=== PATIENT | female | born 1985 | race Caucasian/White ===

== ENCOUNTER 2019-04-19 12:18 | Outpatient (REF) | payer OTHER, SELFPAY ==
[2019-04-19 14:49] LABS: Anion Gap 11.6 mmol/L (3-11); BUN 14 mg/dL (7-18); CO2 22.4 mmol/L (21.0-32.0); CREATININE 0.65 mg/dL (0.55-1.02); Calcium 9.1 mg/dL (8.5-10.1); Chloride 97 mmol/L (98-107); Glucose 398 mg/dL (70-100); Magnesium 1.7 mg/dL (1.8-2.4); Potassium 4.3 mmol/L (3.5-5.1); Sodium 131 mmol/L (136-145); TSH (W/Ref FT4) 2.68 uIU/mL (0.36-3.74)
== END 2019-04-19 12:38 ==
LOC: NCHCN 12:18
PROVIDERS: PCP Nurse Practitioner Family; Visit Provider Nurse Practitioner Family
DX: E83.42 Hypomagnesemia (principal); E04.1 Nontoxic single thyroid nodule; E11.9 Type 2 diabetes mellitus without complications
CPT/HCPCS: 80048; 83735; 84443

== ENCOUNTER 2019-08-08 01:16 | Outpatient (CLI) | payer OTHER, SELFPAY ==
--- NOTE | 2019-08-08 09:02 | DI.MAMMO_ITS ---
EXAM: US BREAST LT COMPLETEAND RT BREAST ULTRASOUND AND MAMMOGRAM CLINICAL HISTORY: BREAST MASS OR LUMP N63.0 TECHNIQUE: Ultrasound performed using standard protocol. COMPARISON: No exams were available for comparison FINDINGS: Mammogram: Palpable abnormalities are noted in both breasts. Mammogram is a baseline examination. The breasts are composed of fatty density tissue, breast density, category A. No masses or suspiciou s calcifications are seen. Bilateral breast ultrasound: No cyst or solid mass is identified in either breast. IMPRESSION: BI-RADS category 1, negative mammogram. Annual screening is recommended at age 40 or sooner if clini jacqui indicated. BI-RADS Cat 1 - Negative. Breast Density - Category A - Almost entirely fatty.
== END 2019-08-08 01:36 ==
PROVIDERS: PCP Nurse Practitioner Family; Visit Provider Nurse Practitioner Family
DX: N63.10 Unspecified lump in the right breast, unspecified quadrant (principal); N63.20 Unspecified lump in the left breast, unspecified quadrant; N64.59 Other signs and symptoms in breast
CPT/HCPCS: 76642; 77062; 77066; G0279

== ENCOUNTER 2020-06-11 19:22 | Outpatient (REF) | payer OTHER, SELFPAY ==
[2020-06-11 22:20] LABS: ALT 19 U/L (14-59); AST 8 U/L (15-37); Anion Gap 10.6 mmol/L (3-11); BUN 9 mg/dL (7-18); CO2 26.4 mmol/L (21.0-32.0); CREATININE 0.59 mg/dL (0.55-1.02); Calcium 9.2 mg/dL (8.5-10.1); Calculated LDL 109 mg/dL (<100); Chloride 99 mmol/L (98-107); Cholesterol 170 mg/dL (<200); Glucose 249 mg/dL (74-106); HDL Cholesterol 37 mg/dL (40-60); Potassium 4.4 mmol/L (3.5-5.1); Sodium 136 mmol/L (136-145); Triglyceride 122 mg/dL (<150)
== END 2020-06-11 19:42 ==
LOC: NCHCN 19:22
PROVIDERS: PCP Nurse Practitioner Family; Visit Provider Nurse Practitioner Family
DX: E11.9 Type 2 diabetes mellitus without complications (principal)
CPT/HCPCS: 80048; 80061; 84450; 84460

== ENCOUNTER 2020-07-11 19:55 | Emergency (ER) | payer OTHER, SELFPAY ==
[2020-07-11 20:08] VITALS: BP 130/90; PULSE 110; RESP 18; TEMP 36.4; O2SAT 96
[2020-07-11] MEDS: Lactated Ringers 1,000 ML 1000 ML IV ×2 (20:30→21:57)
--- NOTE | 2020-07-11 20:36 | ED.GENADUL_ITS ---
Discharge Plan Disposition Patient Disposition: HOME Condition: Good Discharge Details Clinical Impression: Diarrhea, Nausea & vomiting, Hyponatremia, Hypomagnesemia Primary Care Provider: Kalie Espinosa ED Provider: Rosie Rose Home Meds and New Rx's Prescriptions: New ondansetron 4 mg tablet,disintegrating 4 mg PO Q6H PRN (Reason: nausea and vomiting) Qty: 10 RF: 0 Continued fluconazole [Diflucan] 100 mg tablet 100 mg PO DAILY Qty: 20 RF: 2 metformin 500 MG tablet 1,000 mg PO BID RF: 0 lisinopril 5 MG tablet 5 mg PO DAILY RF: 0 magnesium amino acid chelate 100 MG tablet 100 mg PO DAILY RF: 0 Discharge Instructions Instructions: Ondansetron (By mouth), Hyponatremia (ED), Acute Diarrhea (ED), Hypomagnesemia (ED) Additional Instructions: Please continue to encourage gentle hydration. You may advance diet as tolerated but please keep it simple initially with pain such as bananas, rice, applesauce, toast. Please follow-up with primary care next week for reevaluation. If he continues to have loose stools bring him collection to the lab as instructed by nursing staff. If you develop fever/chills, increased abdominal pain, inability stay hydrated or other new/worsening symptoms please seek care urgently once again. Referrals: Kalie Espinosa [Primary Care Provider] - Discharge Data Discharge Date/Time-TO BE ENTERED AT DEPARTURE: 07/11/20 23:25 Medical Decision Making Patient is a pleasant 35-year-old female presenting today with chief complaint of nausea, vomiting and diarrhea. Patient reports that for the past 6 months she has been having difficulty with alternating between constipation for several days and then subsequent diarrhea. She reports that she had no bowel movement for approximately 7 days. Did not take stool softener. She reports that then yesterday she began having bowel movements. States that she has had 9 episodes of diarrhea today. Denies any blood or melena. States that she been having some diffuse abdominal cramping. Past surgical history pertinent for cholecystectomy. Patient reports that today she also had some nausea and vomited x1. She denies any known sick contacts. No fevers or chills. Patient I discussed treatment options. At this point, I do not see a evidence to suggest a surgical abdomen. Her pain is fairly diffuse. She has been passing flatus. Do not see any evidence to suggest an obstruction, acute cholecystitis, pancreatitis, appendicitis. She denies being . No peritoneal findings on exam. She denies discussed risk and benefit of imaging at this point we will hold off at this time. Plan to hydrate the patient, give the Zofran and reassess. Labs reviewed. Patient white count of 13. Hemoglobin 16. Likely concentration with the findings. Sodium is low at 130. Glucose is elevated at 257 which is baseline for the patient. Lipase is normal. Patient I discussed labs. She has not had any bowel movement since being here. Patient is a nurse. As she has had patients with C. difficile, although none recently, I did consider this based on the patient's elevated white count as well as her frequent diarrhea. We will send her home with stool collection kit so she can bring in a sample when she is able. Encourage her to follow-up closely with her primary care. She is able to sip fluids and does report that her nausea has improved with the Zofran. Most likely, a large amount of stool is associated with patient having been constipated for weekend and finally being to have a bowel movement. We will continue this at home. Strict return precautions were discussed. All of her questions and concerns were addressed and she is in agreement with this plan. HPI General Mode of arrival: ambulatory . Date/Time Provider Initiated Documentation: 07/11/20 20:35 . Limitations to Documentation: no limitations . Information obtained by: patient and RN notes reviewed . History of Present Illness 35 year old F presents to the emergency department with the chief complaint of nausea, diarrhea, abdominal cramping, described as moderate, with intensity rated at 4. Quality is described as other (cramping), and is localized to the abdomen. Patient reports no radiation. Patient started experiencing this hour(s) (this morning) and it has been constant. No relieving factors improve symptom(s), No exacerbating factors reported . Patient notes loss of appetite and nausea/vomiting; denies chest pain, cough, fever/chills, headaches, rash, shortness of breath and weakness. Patient did receive the following treatments prior to arrival, none Related Data Home Medications Medication Instructions Recorded Confirmed metformin 1,000 mg PO BID 09/30/16 07/11/20 magnesium amino acid chelate 100 mg PO DAILY 01/14/17 07/11/20 lisinopril 5 mg PO DAILY tab-cap 08/08/17 07/11/20 fluconazole 100 mg tablet 100 mg PO DAILY #20 tab 08/03/18 07/11/20 ondansetron 4 mg PO Q6H PRN #10 tab 07/11/20 Previous Rx's Medication Instructions Recorded fluconazole 100 mg tablet 100 mg PO DAILY #20 tab 08/03/18 ondansetron 4 mg PO Q6H PRN #10 tab 07/11/20 Allergies Allergy/AdvReac Type Severity Reaction Status Date / Time No Known Allergies Allergy Unverified 07/11/20 20:13 General Stated Complaint: Abd Prob FLOYD: 3 Review of Systems Constitutional Constitutional: Reports as per HPI, Denies chills, Denies fatigue, Denies fever(s) and Denies headache(s) ENT Ears, Nose, Mouth, and Throat: Denies headache(s) Cardiovascular Cardiovascular: Reports as per HPI, Denies chest pain and Denies dyspnea Respiratory Respiratory: Reports as per HPI, Denies cough and Denies dyspnea Gastrointestinal Gastrointestinal: Reports as per HPI Musculoskeletal Musculoskeletal: Reports as per HPI and Denies back pain Integumentary/Breasts Skin/Breast: Reports as per HPI and Denies rash Neurologic Neurologic: Reports as per HPI and Denies headache(s) Endocrine Endocrine: Denies fatigue [facility] Medical History (Updated 07/11/20 @ 23:18 by GENIE Rogers) BMI 38.0-38.9,adult Diabetes Type II no endorgan damage. Not using insulin. 2016 hemoglobin A1c 7.7 Hx of thyroid nodule Hyperlipidemia Low vitamin D level (2017). Nocturnal leg cramps Tobacco use Yeast vaginitis Onset 2017. Neg Vag path screen. Rx with weekly Diflucan with improvement in pruritus. Pt with poor glycemic control of DM. Surgical History (Updated 08/05/18 @ 17:39 by Inés Whitley MD) Cholecystectomy Social History (Updated 08/05/18 @ 17:44 by Inés Whitley MD) Smoking/Tobacco Use Status: Current every day Smoking risk assessment performed?: Yes Drug use: Never Substance use type: does not use Number of Children: 0 current occupation: [employer] Do you feel safe in your relationship?: Yes Exam Const General: cooperative, healthy appearing, comfortable, no acute distress and well developed Nutritional Appearance: average body habitus and well nourished Orientation: alert and awake [facility] Head: normal to inspection Mouth: moist mucous membranes Resp Effort & Inspection: normal respiratory effort, able to speak in complete sentences and no respiratory distress Auscultation: clear to auscultation bilaterally, no rales, no rhonchi and no wheezes Cardio Rate: regular rate Rhythm: regular rhythm Heart Sounds: S1 normal and S2 normal GI Inspection: normal to inspection Palpation: soft, no hepatosplenomegaly, not firm, no guarding and tender (diffusely tender with no focal areas of pain, no peritoneal findings) Percussion: normal to percussion Auscultation: normal bowel sounds Back/Spine/Pelvis Back: no CVA tenderness Skin General skin exam: no rashes or lesions noted Trauma: no lacerations or abrasions Neuro General: patient alert and patient awake Cognition: normal cognition Speech: speech normal Gait: normal gait Psych Appearance: grossly normal and well kempt Mental Status: mental status grossly normal Speech and Movement: speech and movement normal Course Vital Signs Vital signs: Vital Signs Temperature 36.4 C L 07/11/20 20:08 Pulse 110 H 07/11/20 20:08 Respiratory Rate 18 07/11/20 20:08 Blood Pressure 130/90 07/11/20 20:08 Pulse Oximetry 96 07/11/20 20:08 Temperature 36.4 C L 07/11/20 20:08 Temperature Source Temporal Artery Scan 07/11/20 20:08 Pulse 110 H 07/11/20 20:08 Respiratory Rate 18 07/11/20 20:08 Respiratory Effort 07/11/20 20:15 Blood Pressure 130/90 07/11/20 20:08 Blood Pressure Position Sitting 07/11/20 20:08 Pulse Oximetry 96 07/11/20 20:08 Oxygen Delivery Method Room Air 07/11/20 20:08 Oxygen Flow Rate 0 07/11/20 20:08 Pain Level 4 07/11/20 20:08
[2020-07-11 20:51] LABS: Abs Immature Grans 0.03 10^3/uL (0.0-0.06); Absolute Basophil Count 0.05 10^3/uL (0.0-0.2); Absolute Eosinophil Count 0.11 10^3/uL (0.0-0.7); Absolute Monocyte Count 0.46 10^3/uL (0.1-0.8); Absolute Neutrophil Count 9.56 10^3/uL (1.2-6.7); Basophils % 0.4; Eosinophils % 0.8; HCT 46.2 % (36.0-46.0); HGB 16.1 g/dL (11.2-15.7); Immature Grans % 0.2; Lymphocytes % 22.7; MCH 28.1 pg (27.0-33.0); MCHC 34.8 % (32.0-36.0); MCV 80.8 fL (80-95); MPV 10.3 fL (8.0-11.0); Monocytes % 3.5; Neutrophils % 72.4; Nucleated RBC 0 %; Platelet Count 380 10^3/uL (130-400); RBC 5.72 10^6/uL (3.93-5.22); RDW 12.3 % (11.7-14.6); RDW-SD 35.8 fL; WBC 13.21 10^3/uL (4.4-10.8)
[2020-07-11 21:03] LABS: ALT 35 U/L (14-59); AST 25 U/L (15-37); Albumin 4.1 g/dL (3.4-5.0); Alkaline Phosphatase 107 U/L (46-116); Anion Gap 9.9 mmol/L (3-11); BUN 12 mg/dL (7-18); Bilirubin, Total 0.6 mg/dL (0.2-1.0); CO2 23.1 mmol/L (21.0-32.0); CREATININE 0.56 mg/dL (0.55-1.02); Calcium 9.8 mg/dL (8.5-10.1); Chloride 97 mmol/L (98-107); Glucose 267 mg/dL (74-106); Lipase 69 U/L (73-393); Magnesium 1.7 mg/dL (1.8-2.4); Potassium 4.2 mmol/L (3.5-5.1); Sodium 130 mmol/L (136-145); Total Protein 8.6 g/dL (6.4-8.2)
[2020-07-11 21:46] VITALS: BP 117/74; PULSE 99; RESP 18; O2SAT 99
[2020-07-11] MEDS: MAGNESIUM SULFATE 1 GM/100 ML BAG IVPB (21:57)
[2020-07-11] MEDS: Ondansetron 4 MG/2 ML VIAL IVP (22:05)
[2020-07-11 23:16] VITALS: BP 113/85; PULSE 89; RESP 16; O2SAT 98
[2020-07-11 23:33] VITALS: BP 129/60; PULSE 104; RESP 18; TEMP 36.6; O2SAT 97
== END 2020-07-11 23:25 | disposition home or self-care (01) ==
PROVIDERS: Emergency Provider Physician Assistant; PCP Nurse Practitioner Family
DX: E83.42 Hypomagnesemia (principal); E87.1 Hypo-osmolality and hyponatremia; R11.2 Nausea with vomiting, unspecified; R19.7 Diarrhea, unspecified; E11.9 Type 2 diabetes mellitus without complications; Z79.84 Long term (current) use of oral hypoglycemic drugs
CPT/HCPCS: 36415; 80053; 83690; 96361; 96365; 96375; 99284; 83735; 85025; J2405; J3475

== ENCOUNTER 2020-07-12 16:32 | Outpatient (REF) | payer OTHER, SELFPAY ==
[2020-07-12 16:15] LABS: C Diff PCR Negative (Negative)
== END 2020-07-12 16:52 ==
LOC: LBN 16:32
PROVIDERS: PCP Nurse Practitioner Family; Visit Provider Physician Assistant
DX: R19.7 Diarrhea, unspecified (principal)
CPT/HCPCS: 87493; 83630; 87324

== ENCOUNTER 2020-09-05 03:50 | Outpatient (CLI) | payer OTHER, SELFPAY ==
--- NOTE | 2020-09-05 | DI.US_ITS ---
EXAM: US THYROID CLINICAL HISTORY: THYROID NODULE, E04.1. TECHNIQUE: Ultrasound thyroid performed using standard protocol. COMPARISON: US THYROID ULTRASOUND from 12/07/2017 FINDINGS: ISTHMUS: 4 mm RIGHT LOBE: Size: 5.2 x 1.5 x 1.7 cm Echogenicity: Heterogeneous Vascularity: Normal. Nodules: None. LEFT LOBE: Size: 4.0 x 1.2 x 1.7 cm Echogenicity: Heterogeneous Vascularity: Normal. Nodules: None. OTHER FINDINGS: Normal appearing cervical lymph nodes. No suspicious adenopathy. IMPRESSION: Heterogeneous thyroid gland. The previously noted 7 millimeter nodule in the left lobe is not visual ized on today's exam. DATA REPOSITORY:
== END 2020-09-05 04:10 ==
PROVIDERS: PCP Nurse Practitioner Family; Visit Provider Nurse Practitioner Family
DX: E07.89 Other specified disorders of thyroid (principal)
CPT/HCPCS: 76536

== ENCOUNTER 2020-11-11 18:15 | Outpatient (CLI) | payer OTHER, SELFPAY ==
--- NOTE | 2020-11-11 09:01 | DI.RAD_ITS ---
Exam(s) XR ANKLE RT COMPLETE EXAM: XR ANKLE RT COMPLETE CLINICAL HISTORY: ANKLE JOINT PAIN RT M25.571. TECHNIQUE: 2D digital imaging was performed. COMPARISON: No exams were available for comparison FINDINGS: BONES: No acute fracture is present. No bony destructive lesion is seen. Plantar calcaneal spur. De generative changes at the talonavicular joint. JOINTS: The ankle mortise is normally aligned. There is mild spurring at the malleoli. SOFT TISSUE: Soft tissue swelling anteriorly and around the malleoli. IMPRESSION: Soft tissue swelling and mild degenerative changes. Heel spur. DATA REPOSITORY: RADIATION DOSE DELIVERED:
== END 2020-11-11 18:35 ==
PROVIDERS: PCP Nurse Practitioner Family; Visit Provider Family Medicine
DX: M25.571 Pain in right ankle and joints of right foot (principal); M77.31 Calcaneal spur, right foot; M79.89 Other specified soft tissue disorders
CPT/HCPCS: 73610

== ENCOUNTER 2021-01-02 04:29 | Outpatient (CLI) | payer OTHER, SELFPAY ==
--- NOTE | 2021-01-02 07:53 | DI.RAD_ITS ---
Exam(s) XR LUMBAR SPINE COMPLETE EXAM: XR LUMBAR SPINE COMPLETE CLINICAL HISTORY: BILAT LEG PAIN, M79.606, BACK PAIN, M54.9. TECHNIQUE: 2D digital imaging was performed. COMPARISON: No exams were available for comparison FINDINGS: BONES: No fracture or destructive lesion. Vertebral bodies are unremarkable. No facet hypertrophy jason ntified. DISKS: Intervertebral disc spaces are maintained. No significant osteophytes. ALIGNMENT: Lumbar spinal alignment is within normal limits. SOFT TISSUE: Right upper quadrant surgical clips. IMPRESSION: Unremarkable radiographs of the lumbar spine. DATA REPOSITORY: RADIATION DOSE DELIVERED:
== END 2021-01-02 04:49 ==
PROVIDERS: PCP Nurse Practitioner Family; Visit Provider Nurse Practitioner Family
DX: M79.605 Pain in left leg (principal); M79.604 Pain in right leg; M54.9 Dorsalgia, unspecified
CPT/HCPCS: 72110

== ENCOUNTER 2021-01-05 16:11 | Outpatient (CLI) | payer OTHER, SELFPAY ==
--- NOTE | 2021-01-05 | DI.RAD_ITS ---
Exam(s) XR RIBS LT W PA LAT CHEST EXAM: XR RIBS LT W PA LAT CHEST CLINICAL HISTORY: LT SIDED RIB PAIN R07.81. TECHNIQUE: 2D digital imaging was performed. COMPARISON: No exams were available for comparison FINDINGS: Heart size normal. Mediastinum not widened. Lungs are clear. No infiltrates nor pleural effusions. No pneumothorax. With respect of the left ribs, there is no evidence of obvious left rib fracture.. No left rib lesio ns seen. No pneumothorax. Clavicle is unremarkable. IMPRESSION: No evidence of left rib fracture on these images. No acute pulmonary findings and no pneumothorax. DATA REPOSITORY: RADIATION DOSE DELIVERED:
== END 2021-01-05 16:31 ==
PROVIDERS: PCP Nurse Practitioner Family; Visit Provider Nurse Practitioner Family
DX: R07.81 Pleurodynia (principal)
CPT/HCPCS: 71046; 71100

== ENCOUNTER 2021-01-09 04:29 | Outpatient (CLI) | payer OTHER, SELFPAY ==
[2021-01-09 08:56] LABS: Glucose 239 mg/dL (74-106); TSH 1.87 uIU/mL (0.36-3.74)
[2021-01-09 18:03] LABS: COMMENT (LAB VIEW ONLY) 99.13 mg/dL; Microalb ug/mg Crea 10.5 ug/mg Cr
[2021-01-10 12:50] LABS: C-Peptide 2.4 ng/mL (1.1 - 4.4)
[2021-01-14 11:35] LABS: GAD65 Ab Assay 1.43 nmol/L (<=0.02)
== END 2021-01-09 04:30 | disposition home or self-care (01) ==
LOC: LBO 04:29
PROVIDERS: PCP Nurse Practitioner Family; Visit Provider Internal Medicine Endocrinology, Diabetes & Metabolism
DX: E11.65 Type 2 diabetes mellitus with hyperglycemia (principal); Z79.4 Long term (current) use of insulin
CPT/HCPCS: 36415; 82947; 86341; 82043; 82570; 84443; 84681

== ENCOUNTER 2021-02-09 10:01 | Outpatient (CLI) | payer OTHER, SELFPAY ==
--- NOTE | 2021-02-09 09:15 | DI.RAD_ITS ---
Exam(s) XR HAND RT COMPLETE EXAM: XR HAND RT COMPLETE CLINICAL HISTORY: right hand pain. TECHNIQUE: 2D digital imaging was performed. COMPARISON: No exams were available for comparison FINDINGS: No evidence of fracture or dislocation. No radiopaque foreign body. No osseous lesions nor erosions evident. Bone density is age-appropriate. There is exaggerated flexion at the proximal interphalangeal joint of the 5th finger. This may indic ate unopposed flexor tendon due to extensor tendon injury. IMPRESSION: As above. Correlation with clinical findings recommended. DATA REPOSITORY: RADIATION DOSE DELIVERED:
== END 2021-02-09 10:02 | disposition home or self-care (01) ==
LOC: DIORS 10:01
PROVIDERS: PCP Nurse Practitioner Family; Referring Provider Nurse Practitioner Family; Visit Provider Physician Assistant
DX: M79.641 Pain in right hand (principal); M21.241 Flexion deformity, right finger joints
CPT/HCPCS: 73130

== ENCOUNTER 2021-03-03 02:25 | Outpatient (CLI) | payer OTHER, SELFPAY ==
--- NOTE | 2021-03-03 08:40 | DI.MRI_ITS ---
Exam(s) MR LOWER JOINT RT WO EXAM: MR LOWER JOINT RT WO CLINICAL HISTORY: ?nodule at tibialis anterior,MASS JOINT OF RT ANKLE,M25.871. TECHNIQUE: Multiplanar multisequence MRI Examination was performed. CONTRAST MATERIAL: Noncontrast COMPARISON: Plain films 11 Nov 2020 FINDINGS: BONES/JOINTS: No evidence of fracture. Plantar calcaneal spur. No evidence of suspicious bone lesion . No joint space narrowing identified. Small tibiotalar joint effusion and posterior talocalcaneal mami int effusion identified. Spurring dorsal talonavicular joint. No talar dome defect. LIGAMENTS: Intact. MUSCULOTENDINOUS STRUCTURES: Visualized portion of the planar fascia is unremarkable. fluid is prese nt around the tibialis anterior tendon and surrounding soft tissues. There is a focal central area o f prominence and intermediate signal within the tendon which could indicate tendinosis. No focal ma ss is seen. A small amount of fluid is seen extending along the extensor digitorum tendons and exten sor hallucis tendons as well as around the flexor hallucis and flexor digitorum tendons and tibialis posterior tendon. No focal tendon tear is seen. . SOFT TISSUES: Mild bimalleolar subcutaneous edema. No mass or soft tissue abscess. IMPRESSION: Focal area of take thickening and edema in the tibial Ren anterior tendon. No discrete mass or cys t. Small amount of nonspecific fluid around the remaining extensor as well as flexure tendons. Smal l joint effusions. DATA REPOSITORY:
== END 2021-03-03 02:45 ==
PROVIDERS: PCP Nurse Practitioner Family; Visit Provider Student in an Organized Health Care Education/Training Program
DX: M25.871 Other specified joint disorders, right ankle and foot (principal); M25.471 Effusion, right ankle
CPT/HCPCS: 73721

== ENCOUNTER 2021-03-18 11:45 | Outpatient (REF) | payer OTHER, SELFPAY ==
[2021-03-18 14:14] LABS: ESR 18 mm/hr (0-20)
[2021-03-18 14:34] LABS: C-Reactive Protein 0.39 mg/dL (0.0-0.3)
[2021-03-18 21:58] LABS: Rheumatoid Factor <8.6 IU/mL (<12.0)
[2021-03-19 12:21] LABS: ANA Interpretation Positive (Negative); ANA Titer Pattern 1:320 Homogeneous
== END 2021-03-18 11:46 | disposition home or self-care (01) ==
LOC: NCHCN 11:45
PROVIDERS: PCP Nurse Practitioner Family; Visit Provider Nurse Practitioner Family
DX: M25.572 Pain in left ankle and joints of left foot (principal)
CPT/HCPCS: 85652; 86038; 86140; 86431

== ENCOUNTER 2021-04-13 07:11 | Emergency (ER) | payer OTHER, SELFPAY ==
[2021-04-13 07:15] VITALS: BP 133/73; PULSE 92; TEMP 36.5; O2SAT 96
--- NOTE | 2021-04-13 07:24 | ED.GENADUL_ITS ---
Discharge Plan Discharge Details Chief Complaint: Nausea/Vomit/Diar Primary Care Provider: Kalie Espinosa ED Provider: Darling Mason Home Meds and New Rx's Prescriptions: No Action fluconazole [Diflucan] 100 mg tablet 100 mg PO DAILY Qty: 20 RF: 2 Toujeo Max U-300 SoloStar 300 unit/mL (3 mL) insulin pen 50 unit subcut DAILY RF: 0 simvastatin 40 mg tablet 40 mg PO DAILY RF: 0 lisinopril 5 MG tablet 5 mg PO DAILY RF: 0 metformin 500 mg tablet 1,000 mg PO BID RF: 0 magnesium amino acid chelate 100 MG tablet 100 mg PO DAILY RF: 0 ondansetron 4 mg tablet,disintegrating 4 mg PO Q6H PRN (Reason: nausea and vomiting) Qty: 10 RF: 0 1 mg Tablet 1 tab PO DAILY RF: 0 HPI General Date/Time Provider Initiated Documentation: 04/13/21 07:24 . Related Data Home Medications Medication Instructions Recorded Confirmed magnesium amino acid chelate 100 mg PO DAILY 01/14/17 04/13/21 lisinopril 5 mg PO DAILY tab-cap 08/08/17 03/20/21 fluconazole 100 mg tablet 100 mg PO DAILY #20 tab 08/03/18 03/20/21 ondansetron 4 mg PO Q6H PRN #10 tab 07/11/20 03/20/21 insulin glargine U-300 conc 300 50 unit SUBCUT DAILY 02/09/21 04/13/21 unit/mL (3 mL) subcutaneous pen metformin 500 mg tablet 1,000 mg PO BID 02/10/21 03/20/21 simvastatin 40 mg tablet 40 mg PO DAILY 02/10/21 03/20/21 [id number] 1 tab PO DAILY 04/13/21 04/13/21 [] Previous Rx's Medication Instructions Recorded fluconazole 100 mg tablet 100 mg PO DAILY #20 tab 08/03/18 ondansetron 4 mg PO Q6H PRN #10 tab 07/11/20 Allergies Allergy/AdvReac Type Severity Reaction Status Date / Time No Known Allergies Allergy Unverified 04/13/21 07:18 General Stated Complaint: Nausea/Vomit/Diar FLOYD: 3 PFSH Medical History (Updated 02/09/21 @ 13:05 by Janeth Colon) BMI 38.0-38.9,adult Diabetes Type II no endorgan damage. Not using insulin. 2016 hemoglobin A1c 7.7 Hx of thyroid nodule Hyperlipidemia Low vitamin D level (2017). Mass of joint of right ankle ?nodule at tibialis anterior Nocturnal leg cramps Right hand pain Tobacco use Yeast vaginitis Onset 2017. Neg Vag path screen. Rx with weekly Diflucan with improvement in pruritus. Pt with poor glycemic control of DM. Surgical History (Updated 08/05/18 @ 17:39 by Inés Whitley MD) Cholecystectomy Social History (Updated 08/05/18 @ 17:44 by Inés Whitley MD) Smoking/Tobacco Use Status: Former Tobacco Use Smoking risk assessment performed?: Yes Alcohol Intake: former Drug use: Never Substance use type: does not use Number of Children: 0 current occupation: [employer] Do you feel safe at home: Yes Do you feel safe in your relationship?: Yes Course Vital Signs Vital signs: Vital Signs Temperature 97.7 F 04/13/21 07:15 Pulse 92 H 04/13/21 07:15 Blood Pressure 133/73 04/13/21 07:15 Pulse Oximetry 96 04/13/21 07:15 Temperature 97.7 F 04/13/21 07:15 Temperature Source Temporal Artery Scan 04/13/21 07:15 Pulse 92 H 04/13/21 07:15 Respiratory Effort Non-Labored 04/13/21 07:21 Blood Pressure 133/73 04/13/21 07:15 Blood Pressure Position Sitting 04/13/21 07:15 Pulse Oximetry 96 04/13/21 07:15 Oxygen Delivery Method Room Air 04/13/21 07:15 Oxygen Flow Rate 0 04/13/21 07:15
[2021-04-13 07:41] LABS: Bilirubin Negative (Negative); Blood Negative (Negative); Clarity Clear (Clear); Glucose Negative (Negative); Ketones Negative (Negative); Leukocyte Esterase Negative (Negative); Nitrite Negative (Negative); Specific Gravity >= 1.030 (1.005-1.025); Urobilinogen 0.2 EU/dL (Up TO 0.2); pH 5.5 (5-8)
[2021-04-13 07:42] LABS: Abs Immature Grans 0.04 10^3/uL (0.0-0.06); Absolute Basophil Count 0.06 10^3/uL (0.0-0.2); Absolute Eosinophil Count 0.04 10^3/uL (0.0-0.7); Absolute Lymphocyte Count 2.51 10^3/uL (1.2-3.4); Absolute Monocyte Count 0.56 10^3/uL (0.1-0.8); Absolute Neutrophil Count 7.43 10^3/uL (1.2-6.7); Basophils % 0.6; Eosinophils % 0.4; HCT 39.6 % (36.0-46.0); HGB 13.2 g/dL (11.2-15.7); Immature Grans % 0.4; Lymphocytes % 23.6; MCH 27.7 pg (27.0-33.0); MCHC 33.3 % (32.0-36.0); Monocytes % 5.3; Neutrophils % 69.7; Nucleated RBC 0 %; Platelet Count 410 10^3/uL (130-400); RBC 4.77 10^6/uL (3.93-5.22); RDW 12.5 % (11.7-14.6); RDW-SD 37.9 fL; WBC 10.64 10^3/uL (4.4-10.8)
[2021-04-13 07:55] LABS: ALT 22 U/L (14-59); AST 7 U/L (15-37); Albumin 3.7 g/dL (3.4-5.0); Alkaline Phosphatase 80 U/L (46-116); Anion Gap 10.9 mmol/L (3-11); BUN 6 mg/dL (7-18); Bilirubin, Total 0.4 mg/dL (0.2-1.0); CO2 25.1 mmol/L (21.0-32.0); CREATININE 0.7 mg/dL (0.55-1.02); Calcium 9.4 mg/dL (8.5-10.1); Chloride 101 mmol/L (98-107); Glucose 174 mg/dL (74-106); Lipase 75 U/L (73-393); Potassium 3.5 mmol/L (3.5-5.1); Sodium 137 mmol/L (136-145)
[2021-04-13 08:10] LABS: Bacteria Few HPF (Negative); Crystals Negative HPF (Negative); Epithelial Cells Moderate HPF (Negative); Mucus Heavy (Negative); RBC 0-2 HPF (0-2); WBC 0-2 HPF (0-5)
[2021-04-13 08:11] LABS: C & S Indicated? No/Sq. Contamination; Casts 0-2 Hyaline LPF (Negative)
--- NOTE | 2021-04-13 08:12 | ED.GENADUL_ITS ---
Discharge Plan Disposition Patient Disposition: HOME Condition: Stable Discharge Details Clinical Impression: Vomiting of Primary Care Provider: Kalie Espinosa ED Provider: Rosa Kincaid Home Meds and New Rx's Prescriptions: New meclizine 25 mg tablet 25 mg PO TID PRNQty: 15 RF: 0 pyridoxine (vitamin B6) 25 mg tablet 75 mg PO DAILY Qty: 15 RF: 0 Discontinued fluconazole [Diflucan] 100 mg tablet 100 mg PO DAILY Qty: 20 RF: 2 simvastatin 40 mg tablet 40 mg PO DAILY RF: 0 lisinopril 5 MG tablet 5 mg PO DAILY RF: 0 metformin 500 mg tablet 1,000 mg PO BID RF: 0 No Action Toujeo Max U-300 SoloStar 300 unit/mL (3 mL) insulin pen 50 unit subcut DAILY RF: 0 magnesium amino acid chelate 100 MG tablet 100 mg PO DAILY RF: 0 ondansetron 4 mg tablet,disintegrating 4 mg PO Q6H PRN (Reason: nausea and vomiting) Qty: 10 RF: 0 1 mg Tablet 1 tab PO DAILY RF: 0 Discharge Instructions Instructions: Nausea and Vomiting in (ED) Additional Instructions: Please return immediately to the emergency department if you develop any new or worsening symptoms, if your condition does not improve as expected, or if you become otherwise concerned. It is extremely important that you call soon as possible to make an appointment to be seen in follow-up for this visit by an manager of regulatory affairs as we discussed. Please take Reglan, meclizine, and pyridoxine for nausea as we discussed. Referrals: Nelia Fisher DO [OSTEOPATHIC DOCTOR] - Kalie Espinosa [Primary Care Provider] - Discharge Data Discharge Date/Time-TO BE ENTERED AT DEPARTURE: 04/13/21 10:23 Medical Decision Making Melvin Bravo is a 35-year-old woman with history of insulin-dependent diabetes at approximately 6 weeks gestational age presenting to emergency department with nausea vomiting unable to hold down fluids since yesterday. On exam patient is well and nontoxic-appearing. Concern for nausea/vomiting of , metabolic/lyte derangement, possible early DKA. Exam/history at this time is not consistent with ectopic , acute emergent intra-abdominal process, sepsis. Plan for IV placement, IV fluid hydration, screening labs, UA, IV Benadryl, IV Reglan. Will monitor and reassess. Patient states that she has to drive 45-minute home and would prefer to not take Benadryl at this time as she needs to drive herself when she leaves. Plan for IV Reglan at this time. Labs reviewed, no DKA, WBC 10.64, UA not c/w UTI. Pt reports feeling significantly improved after reglan, fluids, plan for PO pyridoxine. Pt requests d/c to home at this time. Offered Pt benadryl vs meclizine, Pt elects meclizine. Pt reports she has reglan at home from prior prescription, will also prescribe pyridoxine. I discussed Pt with Dr. Fisher of OB, who will f/u with Pt as outpt, agrees with med regimen. Pt states that she has discontinued metformin, lisinopril, statin as per her PCP. I had a lengthy discussion with Patient regarding return to emergency department precautions, home care, and importance of outpatient follow-up. Pt verbalizes understanding of the plan and is amenable. Patient discharged to home with clear plan for outpatient follow-up. All questions were answered. Disposition decision was made weighing the risks and benefits of hospitalization versus outpatient treatment, the risk for further decompensation, and the patient's wishes. Medical Records Medical records reviewed: Yes I reviewed the patient's medical records. Lab Data Lab results reviewed: Yes I reviewed the patient's lab results. Labs: Laboratory Tests Range/Units 04/13/21 04/13/21 04/13/21 07:30 07:33 07:33 WBC (4.4-10.8) 10^3/uL 10.64 RBC (3.93-5.22) 10^6/uL 4.77 Hgb (11.2-15.7) g/dL 13.2 Hct (36.0-46.0) % 39.6 MCV (80-95) fL 83.0 MCH (27.0-33.0) pg 27.7 MCHC (32.0-36.0) % 33.3 RDW (11.7-14.6) % 12.5 Plt Count (130-400) 10^3/uL 410 H MPV (8.0-11.0) fL 10.0 Immature Gran % 0.4 Neutrophils % 69.7 Lymphocytes % 23.6 Monocytes % 5.3 Eosinophils % 0.4 Basophils % 0.6 Nucleated RBC % % 0 Absolute Neutrophils (1.2-6.7) 10^3/uL 7.43 H Absolute Lymphocytes (1.2-3.4) 10^3/uL 2.51 Absolute Monocytes (0.1-0.8) 10^3/uL 0.56 Absolute Eosinophils (0.0-0.7) 10^3/uL 0.04 Absolute Basophils (0.0-0.2) 10^3/uL 0.06 Sodium (136-145) mmol/L 137 Potassium (3.5-5.1) mmol/L 3.5 Chloride (98-107) mmol/L 101 Carbon Dioxide (21.0-32.0) mmol/L 25.1 Anion Gap (3-11) mmol/L 10.9 BUN (7-18) mg/dL 6 L Creatinine (0.55-1.02) mg/dL 0.7 Estimated GFR/1.73 m2 (mL/min/1.73m2) >= 60.00 Glucose (74-106) mg/dL 174 H Calcium (8.5-10.1) mg/dL 9.4 Total Bilirubin (0.2-1.0) mg/dL 0.4 AST (15-37) U/L 7 L ALT (14-59) U/L 22 Alkaline Phosphatase (46-116) U/L 80 Total Protein (6.4-8.2) g/dL 8.0 Albumin (3.4-5.0) g/dL 3.7 Lipase (73-393) U/L 75 Urine Color (Yellow) Yellow Urine Clarity (Clear) Clear Urine pH (5-8) 5.5 Ur Specific Decker (1.005-1.025) >= 1.030 H Urine Protein (Negative) mg/dL Trace H Urine Ketones (Negative) mg/dL Negative Urine Blood (Negative) Negative Urine Nitrite (Negative) Negative Urine Bilirubin (Negative) Negative Urine Urobilinogen (Up TO 0.2) EU/dL 0.2 Ur Leukocyte Esterase (Negative) Negative Urine RBC (0-2) HPF 0-2 Urine WBC (0-5) HPF 0-2 Ur Epithelial Cells (Negative) HPF Moderate Urine Crystals (Negative) HPF Negative Urine Bacteria (Negative) HPF Few Urine Casts (Negative) LPF 0-2 Hyaline Urine Mucus (Negative) Heavy Ur Culture Indicated? No/Sq. Contamination Urine Glucose (Negative) mg/dL Negative HPI General Mode of arrival: ambulatory . Date/Time Provider Initiated Documentation: 04/13/21 07:24 . Limitations to Documentation: no limitations . Information obtained by: patient, RN notes reviewed and old records reviewed . HPI Narrative: Melvin Bravo is a 35-year-old woman G3, P1 with a history of insulin-dependent diabetes presenting to emergency department with nausea and vomiting. Patient reports her last menstrual period was March 03, and first positive test was 2.5 weeks ago. Patient reports that she has been seen by PCP since finding of her , but has not been seen by obstetrics. Patient reports that she has had some nausea over the past week or so, but symptoms became severe yesterday when she started vomiting. Patient reports that she has not been able to hold anything down since yesterday. Patient reports that she had one ended miscarriage, and one that she carried to term, her daughter is now 10 years old, and had hyperemesis thr oughout that . Patient reports that blood sugars have been relatively well controlled over the past few months, typically around 140 on insulin. She denies any pain, diarrhea, cough, shortness of breath, fever, numbness, weakness. Rare alcohol use with no alcohol use during this , no nicotine/tobacco, no recreational drug use. Denies allergies. Related Data Home Medications Medication Instructions Recorded Confirmed magnesium amino acid chelate 100 mg PO DAILY 01/14/17 04/13/21 ondansetron 4 mg PO Q6H PRN #10 tab 07/11/20 03/20/21 insulin glargine U-300 conc 300 50 unit SUBCUT DAILY 02/09/21 04/13/21 unit/mL (3 mL) subcutaneous pen meclizine 25 mg PO TID PRN #15 tab 04/13/21 [id number] 1 tab PO DAILY 04/13/21 04/13/21 [] pyridoxine (vitamin B6) 75 mg PO DAILY #15 tab 04/13/21 Previous Rx's Medication Instructions Recorded ondansetron 4 mg PO Q6H PRN #10 tab 07/11/20 meclizine 25 mg PO TID PRN #15 tab 04/13/21 pyridoxine (vitamin B6) 75 mg PO DAILY #15 tab 04/13/21 Allergies Allergy/AdvReac Type Severity Reaction Status Date / Time No Known Allergies Allergy Unverified 04/13/21 07:18 General Stated Complaint: Nausea/Vomit/Diar FLOYD: 3 Review of Systems Narrative: Constitutional: denies fevers Eyes: denies eye pain ENT: denies ear pain, dental pain, sore throat Cardiovascular: denies chest pain Respiratory: denies SOB, cough GI: denies abdominal pain, diarrhea, reports nausea, vomiting : denies flank pain, vaginal bleeding MSK: denies back pain, neck pain, arthralgias, myalgias Skin: denies rash Neuro: denies headaches, numbness, weakness PFSH Medical History BMI 38.0-38.9,adult Diabetes Type II no endorgan damage. Not using insulin. 2016 hemoglobin A1c 7.7 Hx of thyroid nodule Hyperlipidemia Low vitamin D level (2017). Mass of joint of right ankle ?nodule at tibialis anterior Nocturnal leg cramps Right hand pain Tobacco use Yeast vaginitis Onset 2017. Neg Vag path screen. Rx with weekly Diflucan with improvement in pruritus. Pt with poor glycemic control of DM. Surgical History (Updated 08/05/18 @ 17:39 by Inés Whitley MD) Cholecystectomy Social History Smoking/Tobacco Use Status: Former Tobacco Use Smoking risk assessment performed?: Yes Alcohol Intake: former Drug use: Never Substance use type: does not use Number of Children: 0 current occupation: [employer] Do you feel safe at home: Yes Do you feel safe in your relationship?: Yes Exam Narrative Exam Narrative: Constitutional: well and [id number], pleasant, conversing normally HENT: head atraumatic/normocephalic/normal inspection, mucous membranes moist Eyes: conjunctiva normal, sclera normal, pupils 3mm b/l Neck: no stridor, normal ROM, trachea midline Resp: normal work of breathing, speaking in full sentences Cardio: normal rate, normal rhythm Skin: warm, dry, normal color, no rash Neuro: alert, not altered, grossly non-focal, normal tone Ext: no edema Psych: normal mood, normal affect, normal behavior Course Vital Signs Vital signs: Vital Signs Temperature 36.5 C 04/13/21 07:15 Pulse 92 H 04/13/21 07:15 Blood Pressure 133/73 04/13/21 07:15 Pulse Oximetry 96 04/13/21 07:15 Temperature 36.5 C 04/13/21 07:15 Temperature Source Temporal Artery Scan 04/13/21 07:15 Pulse 92 H 04/13/21 07:15 Respiratory Effort Non-Labored 04/13/21 07:21 Blood Pressure 133/73 04/13/21 07:15 Blood Pressure Position Sitting 04/13/21 07:15 Pulse Oximetry 96 04/13/21 07:15 Oxygen Delivery Method Room Air 04/13/21 07:15 Oxygen Flow Rate 0 04/13/21 07:15 Lab/Test Results Lab/Test Results: Laboratory Tests Range/Units 04/13/21 04/13/21 04/13/21 07:30 07:33 07:33 WBC (4.4-10.8) 10^3/uL 10.64 RBC (3.93-5.22) 10^6/uL 4.77 Hgb (11.2-15.7) g/dL 13.2 Hct (36.0-46.0) % 39.6 MCV (80-95) fL 83.0 MCH (27.0-33.0) pg 27.7 MCHC (32.0-36.0) % 33.3 RDW (11.7-14.6) % 12.5 Plt Count (130-400) 10^3/uL 410 H MPV (8.0-11.0) fL 10.0 Immature Gran % 0.4 Neutrophils % 69.7 Lymphocytes % 23.6 Monocytes % 5.3 Eosinophils % 0.4 Basophils % 0.6 Nucleated RBC % % 0 Absolute Neutrophils (1.2-6.7) 10^3/uL 7.43 H Absolute Lymphocytes (1.2-3.4) 10^3/uL 2.51 Absolute Monocytes (0.1-0.8) 10^3/uL 0.56 Absolute Eosinophils (0.0-0.7) 10^3/uL 0.04 Absolute Basophils (0.0-0.2) 10^3/uL 0.06 Sodium (136-145) mmol/L 137 Potassium (3.5-5.1) mmol/L 3.5 Chloride (98-107) mmol/L 101 Carbon Dioxide (21.0-32.0) mmol/L 25.1 Anion Gap (3-11) mmol/L 10.9 BUN (7-18) mg/dL 6 L Creatinine (0.55-1.02) mg/dL 0.7 Estimated GFR/1.73 m2 (mL/min/1.73m2) >= 60.00 Glucose (74-106) mg/dL 174 H Calcium (8.5-10.1) mg/dL 9.4 Total Bilirubin (0.2-1.0) mg/dL 0.4 AST (15-37) U/L 7 L ALT (14-59) U/L 22 Alkaline Phosphatase (46-116) U/L 80 Total Protein (6.4-8.2) g/dL 8.0 Albumin (3.4-5.0) g/dL 3.7 Lipase (73-393) U/L 75 Urine Color (Yellow) Yellow Urine Clarity (Clear) Clear Urine pH (5-8) 5.5 Ur Specific Decker (1.005-1.025) >= 1.030 H Urine Protein (Negative) mg/dL Trace H Urine Ketones (Negative) mg/dL Negative Urine Blood (Negative) Negative Urine Nitrite (Negative) Negative Urine Bilirubin (Negative) Negative Urine Urobilinogen (Up TO 0.2) EU/dL 0.2 Ur Leukocyte Esterase (Negative) Negative Urine RBC (0-2) HPF 0-2 Urine WBC (0-5) HPF 0-2 Ur Epithelial Cells (Negative) HPF Moderate Urine Crystals (Negative) HPF Negative Urine Bacteria (Negative) HPF Few Urine Casts (Negative) LPF 0-2 Hyaline Urine Mucus (Negative) Heavy Ur Culture Indicated? No/Sq. Contamination Urine Glucose (Negative) mg/dL Negative POC- Test(urine) Positive
[2021-04-13] MEDS: Normal Saline 1,000 ML 1000 ML IV (08:14)
[2021-04-13] MEDS: Metoclopramide 10 MG/2 ML VIAL IVP (08:22)
[2021-04-13 09:00] VITALS: BP 112/71; PULSE 74; RESP 16; O2SAT 99
--- NOTE | 2021-04-13 16:50 | NUR.NOTE ---
PT REFERRAL SENT TO [facility]
== END 2021-04-13 10:23 | disposition home or self-care (01) ==
PROVIDERS: Physician Assistant; Emergency Provider Student in an Organized Health Care Education/Training Program; PCP Nurse Practitioner Family
DX: O21.8 Other vomiting complicating pregnancy (principal); Z3A.01 Less than 8 weeks gestation of pregnancy
CPT/HCPCS: 36415; 80053; 81025; 83690; 96361; 96374; 99284; 81003; 81015; 85025; 99283; J2765

== ENCOUNTER 2021-04-16 03:00 | Outpatient (CLI) | payer OTHER, SELFPAY ==
--- NOTE | 2021-04-16 11:00 | NS.NUTBLAN_ITS ---
Met Rossy at [facility]. She is 6 weeks with dx MIGUELITO diabetes. Followed by [facility] [place] endocrinology. Taking Toujeo- 50 units qd. Reports checking her blood sugars TID, fasting levels ranging from 110-150 m/dl, post prandial levels range from 199-180 mg/dl. Has follow up appt with endo next week to adjust medications. c/o n/v with very poor intake, mostly able to consume crackers, applesauce and noodles. Trying to get insurance to cover a gastric emptying study to assess potential gastroparesis. Reports losing over 160 lbs in last 3 days before her diagnosis. Works at ICU nurse at [employer]. Today's session included placing a Dexcom 6 continuous glucose monitor and sync with phone and [employer] cb. Reviewed macronutrient intake goals and encouraged using a phone cb - [employer]- to track her intake. Will follow up with Sharita and review blood sugar patterns and meal adjustments as needed. In view of elevated blood sugar levels, exceeding glycemic goals for GDM, will need insulin adjustment- defer to endo. If needs an insulin pump in future, will be able to sync with Dexcom 6 CGM. Will follow weekly either in person, phone or prn
== END 2021-04-16 03:01 | disposition home or self-care (01) ==
PROVIDERS: PCP Nurse Practitioner Family; Visit Provider Dietitian, Registered
DX: O24.011 Pre-existing type 1 diabetes mellitus, in pregnancy, first trimester (principal); Z79.4 Long term (current) use of insulin; Z71.3 Dietary counseling and surveillance; Z3A.01 Less than 8 weeks gestation of pregnancy
CPT/HCPCS: 97802

== ENCOUNTER 2021-04-29 08:33 | Outpatient (REF) | payer OTHER, SELFPAY ==
[2021-04-29 09:23] LABS: FREE T4 1.08 ng/dL (0.76-1.46); TSH 2.42 uIU/mL (0.36-3.74)
[2021-04-29 16:50] LABS: T3,Free 3.8 pg/mL (2.8-5.3)
== END 2021-04-29 08:34 | disposition home or self-care (01) ==
LOC: LBO 08:33
PROVIDERS: PCP Nurse Practitioner Family; Visit Provider Nurse Practitioner Family
DX: E04.1 Nontoxic single thyroid nodule (principal)
CPT/HCPCS: 36415; 84439; 84443; 84481

== ENCOUNTER 2021-05-06 10:42 | Observation (INO) | payer OTHER, SELFPAY ==
[2021-05-06] MEDS: Ondansetron 4 MG/2 ML VIAL IVP ×3 (11:07→16:50)
[2021-05-06] MEDS: Lactated Ringers 1,000 ML 200 ML IV (11:07)
[2021-05-06] MEDS: Normal Saline Flush 10 ML SYR IVP ×3 (11:08→22:00)
[2021-05-06 11:09] VITALS: BP 111/69; PULSE 66; RESP 22; TEMP 36.6; O2SAT 100
[2021-05-06 11:44] LABS: HCT 40.7 % (36.0-46.0); HGB 13.9 g/dL (11.2-15.7); MCH 27.5 pg (27.0-33.0); MCHC 34.2 % (32.0-36.0); MCV 80.6 fL (80-95); MPV 10.4 fL (8.0-11.0); Platelet Count 374 10^3/uL (130-400); RBC 5.05 10^6/uL (3.93-5.22); RDW 12.5 % (11.7-14.6); RDW-SD 36.4 fL; WBC 10.45 10^3/uL (4.4-10.8)
[2021-05-06 11:52] LABS: Anion Gap 15.2 mmol/L (3-11); CO2 22.8 mmol/L (21.0-32.0); Chloride 97 mmol/L (98-107); Potassium 3.1 mmol/L (3.5-5.1); Sodium 135 mmol/L (136-145)
--- NOTE | 2021-05-06 13:17 | NUR.NOTE ---
Nursing Note: Spoke to Taylor John MD about patient sugar being 220. Patient has not eaten anything in a few days per patient she did not take her insulin today. verbal order to have patient take own insulin and will re-address tonights dose. Patient took own insulin at 1238.
[2021-05-06 13:54] LABS: Albumin 3.7 g/dL (3.4-5.0); BUN 12 mg/dL (7-18); CREATININE 0.9 mg/dL (0.55-1.02); Calcium 9.5 mg/dL (8.5-10.1); Glucose 237 mg/dL (74-106); Total Protein 8.5 g/dL (6.4-8.2)
[2021-05-06 13:55] LABS: ALT 24 U/L (14-59); AST 11 U/L (15-37); Alkaline Phosphatase 88 U/L (46-116); Amylase 22 U/L (25-115); Bilirubin, Total 0.5 mg/dL (0.2-1.0); Lipase 60 U/L (73-393)
[2021-05-06] MEDS: POTASSIUM CHLORIDE/0.9% NACL 1,000 ML 150 MEQ IV (14:18)
[2021-05-06] MEDS: POTASSIUM CHLORIDE 20 MEQ/100 ML BAG 50 MEQ IVPB ×2 (14:21→17:07)
[2021-05-06] MEDS: diphenhydrAMINE 50 MG/ML VIAL 25 MG IVP (14:23)
[2021-05-06] MEDS: Metoclopramide 10 MG/2 ML VIAL IVP ×2 (14:23→21:59)
[2021-05-06 14:52] LABS: Clarity Clear (Clear); Leukocyte Esterase Negative (Negative); Nitrite Negative (Negative); Specific Gravity >= 1.030 (1.005-1.025); pH 5.5 (5-8)
[2021-05-06 14:53] LABS: Bilirubin Negative (Negative); Blood Negative (Negative); Glucose 500 mg/dL (Negative); Ketones >=160 mg/dL (Negative); Urobilinogen 0.2 EU/dL (Up TO 0.2)
[2021-05-06 14:58] LABS: Bacteria Few HPF (Negative); C & S Indicated? No; Casts Negative LPF (Negative); Crystals Negative HPF (Negative); Epithelial Cells Few HPF (Negative); Mucus Moderate (Negative); RBC 0-2 HPF (0-2)
[2021-05-06 16:30] VITALS: BP 112/65; PULSE 75; RESP 18; TEMP 37.2; O2SAT 98
[2021-05-06] MEDS: Normal Saline 500 ML 30 ML IV (16:40)
[2021-05-06 16:45] VITALS: BP 124/74; PULSE 68; RESP 20; O2SAT 99
--- NOTE | 2021-05-06 17:38 | HPE_ITS ---
Date of service: 05/06/21 Time of Service: 17:38 Assessment and Plan Assessment and plan (1) COVID-19 affecting in first trimester: Status: Acute Assessment and plan: Patient vital signs are currently stable. Oxygen saturation is normal. The plan is to administer infusion of Monro clonal antibodies today. (2) Hyperemesis: Status: Acute Assessment and plan: A variety of antiemetic medications have been ordered. The plan is not to administer steroids at this point time secondary to the patient's diabetes (3) Hypokalemia: Status: Acute Assessment and plan: Replace potassium (4) Hyperglycemia: Status: Acute Assessment and plan: Continue glargine insulin per usual dosing schedule. OB-HPI Labor/Delivery History of Present Illness Reason for Visit: Hyperemesis in the 1st Trimester Chief Complaint: Maternal Discomfort (Intractable nausea and vomiting not responsive to oral antiemetics) , Associated Signs and Symptoms of Maternal Di scomfort: Covid 19 test positive. NELLIE Calculator Estimated Delivery Date Method Current WG Current Estimate 12/08/21 Ultrasound #1 9w 1d Other Estimates 12/08/21 LMP (Certain) 9w 1d History of Present Specific Issues/Plan - Insulin dependent DM. 04/13/21. Prior to maintenance dose of Glargine 50units. Followed by Endocrinology at [facility] [place]. CBGs: Fasting, 1hr PP. Has transcutaneous continuous glucose monitoring echo;20-22w at [facility] [place]. Scheduled. Monthly u/s for growth beginning @ 26w. NSTs 2x/week beginning 32w. Opthalmology consult for retinopathy. Morphology u/s at 20w. Scheduled. - N/V 1st trimester. Ondansetron, Meclazine, - Declined Covid vaccine. 05/02/21 + Covid test. 05/06/21 Monoclonal antibody infusion. - Declines cfDNA testing. OK with mAFP after 16w. Review of Systems Constitutional Constitutional: Reports anorexia, Denies chills, Reports lethargy and Reports poor appetite Comments: Intractable nausea and vomiting for 48 hours. Not responsive to oral Reglan ondansetron and Phenergan suppositories. Patient reports being unable to hold even water down. Anytime she sits up from a lying position she has emesis. Patient was diagnosed with a positive Covid test on 05/03/2021 after developing symptoms on 04/30/2021. Patient reports that the Covid symptoms are not as troublesome as her hyperemesis. Cardiovascular Cardiovascular: Denies chest pain and Denies dyspnea Respiratory Respiratory: Reports cough, Denies dyspnea and Denies wheezing Gastrointestinal Gastrointestinal: Reports belching (Associated with any liquid intake), Reports dyspepsia, Reports nausea and Reports vomiting Genitourinary Genitourinary: Denies abnormal vaginal bleeding, Denies pelvic pain and Reports other (Decreased frequency of urination) Musculoskeletal Musculoskeletal: Reports myalgias Integumentary/Breasts Skin/Breast: Reports system reviewed and no additional complaints, except as documented Psychiatric Comments: Exhausted. Plan to take a leave of absence from work. Endocrine Comments: Did not take glargine insulin last evening. She has not been eating so has not taken her short acting insulin Allergic/Immunologic Allergic/Immunologic: Denies wheezing [facility] Medical History (Updated 05/06/21 @ 17:49 by Inés Whitley MD) Hx of thyroid nodule Hx of vaginitis (08/21/17) Hyperlipidemia Low vitamin D level (2016). 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 Sexually active: Yes Do you feel safe at home: Yes Do you feel safe in your relationship?: Yes History History 5 Para Hx # Term Pregnancies 1 Multiple births Hx # Pregnancies Ectopic pregnancies AB induced Hx Number of Living Children 1 AB spontaneous Meds Allergies and Home Medications Allergies Allergy/AdvReac Type Severity Reaction Status Date / Time No Known Allergies Allergy Unverified 04/13/21 07:18 Home Medications Medication Instructions Recorded Confirmed Type magnesium amino acid chelate 100 mg PO DAILY 01/14/17 05/06/21 History insulin glargine U-300 conc 300 50 unit SUBCUT DAILY 02/09/21 05/06/21 History unit/mL (3 mL) subcutaneous pen [id number] 1 tab PO DAILY 04/13/21 05/06/21 History [] pyridoxine (vitamin B6) 75 mg PO DAILY #15 tab 04/13/21 05/06/21 Rx doxylamine 10 mg-pyridoxine (vit 1 tab PO TID PRN #60 tab 04/15/21 05/06/21 Rx B6) 10 mg tablet,delayed release meclizine 25 mg tablet 25 mg PO TID PRN #30 tab 04/15/21 05/06/21 Rx metoclopramide HCl 5 mg tablet 5 mg PO QACHS PRN #30 tab 04/15/21 05/06/21 Rx blood-glucose transmitter #1 ea 04/16/21 05/05/21 Rx insulin aspart U-100 100 unit/mL See Rx Instructions SUBCUT TID #15 04/16/21 05/06/21 Rx (3 mL) subcutaneous pen ml pen needle, diabetic 32 gauge x #50 ea 04/16/21 05/05/21 Rx /32 blood-glucose sensor #3 ea 04/23/21 05/05/21 Rx ondansetron 4 mg disintegrating 4 mg PO Q6H PRN #30 tab 05/05/21 05/06/21 Rx tablet promethazine 25 mg rectal 25 mg ID Q6H PRN #6 ea 05/05/21 05/06/21 Rx suppository Exam Physical Exam Vital signs: Temp Pulse Resp BP Pulse Ox 99.0 F 68 20 124/74 99 05/06/21 16:30 05/06/21 16:45 05/06/21 16:45 05/06/21 16:45 05/06/21 16:45 Vital Signs Reviewed: Yes Notable Details: Normal oxygen saturation. No evidence of tachycardia Constitutional Constitutional: mild distress, obese and cooperative Detailed Labor and Delivery Exam Varghese Score: Cervical Points Exam 0 1 2 3 Dilation Closed 1-2cm 3-4 cm 5-6cm Effacement 0-30% 40-50% 60-70% 80% Consistency Firm Medium Soft Station -3 -2 -1,0 +1,+2 Position Posterior Mid Anterior Comments: Vaginal exam deferred. Patient is in her first trimester. heart tones not auscultated Neck Exam Neck Exam: Normal Chest/Brest/Axilla Exam Chest Exam: Normal Breast Exam Breast Exam: Not Done Respiratory Exam Respiratory Exam: Normal Cardiovascular Exam Cardiovascular Exam: Normal Abdominal Exam Abdominal Exam: Normal Rectal Exam Rectal Exam: Not Done Exam Exam: Not Done Extremities Exam Extremities Exam: Normal Back/Spine/Pelvis Exam Back Exam: Not Done Pelvis Adequate: No Skin Exam Skin Exam: Normal (Facial plethora) Neurological Exam Neurological Exam: Normal Psychiatric Exam Psychiatric Exam: Normal Results Abnormal Lab Findings: Abnormal Labs 05/06/21 05/06/21 11:30 14:25 Sodium 135 L Potassium 3.1 L Chloride 97 L Anion Gap 15.2 H Glucose 237 H AST 11 L Total Protein 8.5 H Amylase 22 L Ur Specific [place] >= 1.030 H Urine Protein Trace H Urine Ketones >=160 H Urine Glucose 500 H Risk Assessment Risk for Shoulder Dystocia Historical/Initial OB: POSITIVE FOR: Pre- BMI>30 Risks Reviewed Risks Reviewed Upon Admission: Yes
[2021-05-06 19:45] VITALS: BP 116/70; PULSE 70; RESP 20; TEMP 36.6; O2SAT 98
[2021-05-06] MEDS: Pantoprazole 40 MG VIAL IVP (21:59)
[2021-05-07] MEDS: Ondansetron 4 MG/2 ML VIAL IVP (03:56)
[2021-05-07] MEDS: Metoclopramide 10 MG/2 ML VIAL IVP ×2 (06:30→17:45)
[2021-05-07 08:09] LABS: Albumin 3.1 g/dL (3.4-5.0); Alkaline Phosphatase 70 U/L (46-116); Anion Gap 11.5 mmol/L (3-11); BUN 8 mg/dL (7-18); Bilirubin, Total 0.5 mg/dL (0.2-1.0); CO2 23.5 mmol/L (21.0-32.0); CREATININE 0.6 mg/dL (0.55-1.02); Calcium 8.7 mg/dL (8.5-10.1); Chloride 98 mmol/L (98-107); Glucose 142 mg/dL (74-106); Potassium 3.6 mmol/L (3.5-5.1); Sodium 133 mmol/L (136-145); Total Protein 6.4 g/dL (6.4-8.2)
[2021-05-07 08:10] LABS: ALT 20 U/L (14-59); AST 12 U/L (15-37)
--- NOTE | 2021-05-07 08:30 | W.PM.PROGNOT ---
Date of Service Date of service: 05/07/21 Time of Service: 08:30 Assessment and Plan Assessment and plan (1) Hyperglycemia: Status: Acute Assessment and plan: Patient is currently not taking any NovoLog insulin. She has been taking her standard dose of glargine 25 units in the morning and 35 units in the evening. I have recommended based on her morning glucose of 142 to increase her glargine to 40 units in the evening and to have the 25 units remain unchanged. The hope is it when she is able to tolerate food she can use the NovoLog for meals. (2) Hypokalemia: Status: Acute Assessment and plan: Hypokalemia is resolved after supplementation yesterday (3) COVID-19 affecting in first trimester: Status: Acute Assessment and plan: Patient continues with stable vital signs appropriate oxygen saturation. She received monoclonal antibodies IV yesterday it was well tolerated. (4) Hyperemesis: Status: Acute Assessment and plan: Proton pump inhibitor added to medication regime. We will change her ondansetron to 8 mg every 8 hours IV. Reluctant to consider dexamethasone as a treatment secondary to her diabetes. We will add multivitamins who IV bag today and resume lactated Ringer's for the rest of the IV infusions. (5) Type 1 diabetes mellitus affecting in first trimester, antepartum: Status: Acute Assessment and plan: We will continue to monitor CBGs every 6 hours until the patient is tolerating regular diet. Of we will retrieve requested nutrition consult. Subjective Subjective Patient reports: diarrhea (one episode yesterday evening), nausea (constant), vomiting (dry heaves. ) and afebrile Interval history since last seen: Pt reports slight improvement in nausea/emesis episodes during night. Persists with almost constant nausea. Bouts of emesis fewer. Not taking Novolog 2/2 no caloric intake. Last night took scheduled dose of Glargine 35units SQ. Q6hr CBGs initiated, continuous monitor off. CBGs 05/06/21 at bedtime: 114. CBG 05/07/21 0600: 142 Meds added last night: Protonix 40mg daily. Exam Const General: in distress (still gaging and dry heaving) moderate Nutritional Appearance: obese (Pt wt has remained stable.) Orientation: alert, awake and oriented x3 Resp Effort & Inspection: normal respiratory effort Cardio Rate: regular rate GI Inspection: obesity Palpation: soft, no hepatosplenomegaly and tender (focal tenderness. ) in the epigastrum General: deferred Skin General skin exam: no rashes or lesions noted Extrem General: normal to inspection Psych Appearance: disheveled Mental Status: mental status grossly normal Speech and Movement: speech and movement normal Mood: congruent mood Affect: normal affect Attitude: cooperative Thought Process: normal Thought Content: normal Insight: insight good Judgment: judgment good Objective Last Vital Signs Temp 97.9 F 05/06/21 19:45 Pulse 70 05/06/21 19:45 Resp 20 05/06/21 19:45 BP 116/70 05/06/21 19:45 Pulse Ox 98 05/06/21 19:45 Laboratory Results - last 24 hr 05/06/21 05/06/21 05/06/21 11:30 11:30 14:25 WBC 10.45 RBC 5.05 Hgb 13.9 Hct 40.7 MCV 80.6 MCH 27.5 MCHC 34.2 RDW 12.5 Plt Count 374 MPV 10.4 Sodium 135 L Potassium 3.1 L Chloride 97 L Carbon Dioxide 22.8 Anion Gap 15.2 H BUN 12 Creatinine 0.9 Estimated GFR/1.73 m2 >= 60.00 Glucose 237 H Calcium 9.5 Magnesium 2.0 Total Bilirubin 0.5 AST 11 L ALT 24 Alkaline Phosphatase 88 Total Protein 8.5 H Albumin 3.7 Amylase 22 L Lipase 60 Urine Color Yellow Urine Clarity Clear Urine pH 5.5 Ur Specific Andrews >= 1.030 H Urine Protein Trace H Urine Ketones >=160 H Urine Blood Negative Urine Nitrite Negative Urine Bilirubin Negative Urine Urobilinogen 0.2 Ur Leukocyte Esterase Negative Urine RBC 0-2 Urine WBC 3-5 Ur Epithelial Cells Few Urine Crystals Negative Urine Bacteria Few Urine Casts Negative Urine Mucus Moderate Ur Culture Indicated? No Urine Glucose 500 H 05/07/21 06:55 WBC RBC Hgb Hct MCV MCH MCHC RDW Plt Count MPV Sodium 133 L Potassium 3.6 Chloride 98 Carbon Dioxide 23.5 Anion Gap 11.5 H BUN 8 Creatinine 0.6 D Estimated GFR/1.73 m2 >= 60.00 Glucose 142 H D Calcium 8.7 Magnesium Total Bilirubin 0.5 AST 12 L ALT 20 Alkaline Phosphatase 70 Total Protein 6.4 Albumin 3.1 L Amylase Lipase Urine Color Urine Clarity Urine pH Ur Specific Andrews Urine Protein Urine Ketones Urine Blood Urine Nitrite Urine Bilirubin Urine Urobilinogen Ur Leukocyte Esterase Urine RBC Urine WBC Ur Epithelial Cells Urine Crystals Urine Bacteria Urine Casts Urine Mucus Ur Culture Indicated? Urine Glucose
[2021-05-07] MEDS: Pantoprazole 40 MG VIAL IVP (08:31)
[2021-05-07 09:54] VITALS: BP 126/71; PULSE 70; RESP 16; TEMP 36.8
[2021-05-07] MEDS: Ondansetron 4 MG/2 ML VIAL 8 MG IVP ×2 (12:31→22:43)
[2021-05-07] MEDS: Lactated Ringers 1,000 ML 150 ML IV ×2 (12:52→20:18)
[2021-05-07 16:30] VITALS: BP 121/74; PULSE 70; RESP 24; TEMP 36.4; O2SAT 98
[2021-05-07 17:45] VITALS: TEMP 36.8
[2021-05-07] MEDS: Normal Saline Flush 10 ML SYR IVP ×2 (17:47→22:44)
[2021-05-07 20:20] VITALS: BP 131/76; PULSE 59; RESP 24; TEMP 36.7; O2SAT 98
[2021-05-08 00:14] VITALS: BP 125/72; PULSE 59; RESP 20
[2021-05-08] MEDS: Metoclopramide 10 MG/2 ML VIAL IVP ×3 (01:54→21:57)
[2021-05-08 08:30] VITALS: BP 136/76; PULSE 57; RESP 16; TEMP 36.5; O2SAT 100
[2021-05-08] MEDS: Ondansetron 4 MG/2 ML VIAL 8 MG IVP ×2 (08:35→17:55)
[2021-05-08] MEDS: Pantoprazole 40 MG VIAL IVP (08:35)
[2021-05-08] MEDS: Lactated Ringers 1,000 ML 150 ML IV ×2 (08:49→15:48)
--- NOTE | 2021-05-08 11:36 | NS.NUTBLAN_ITS ---
Date of service: 05/08/21 Time of Service: 11:36 Nutritional Consult ASSESSMENT: Cari is 9 weeks with type 1 Dm, obesity with covid, and hyperemesis. DM meds: glargine 25 u AM, 40 u pm, novolog TID, 1:5 insulin:carb ratio, SS for correction. No meal time insulin at this time. Tolerating clear liquid diet. Hx of vitamin D deficiency, hx of losing 170 lbs in last 2 years without trying, newly diagnosed with MIGUELITO diabetes, following by [facility] endocrinology. Cari uses a Dexcom 6 CGM with remote monitoring. Weekly blood sugars provided to physicians for insulin management, physicians updated with significant glycemic excursion prn. BLood sugars remain elevated but improving. First trimester does not require additional nutrient needs above base line needs. No significant weight gain needed during first trimester. Upto 15-20 lbs weight gain expected at 40 weeks. Did not meet with Cari due to covid precautions. NUTRITIONAL DIAGNOSIS: obesity hx of drastic weight loss inadquate nutrient intake due to hyperemesis, n/v for last 3 weeks Type 1 diabetes INTERVENTION: advance diet as tolerated, continue with 1:5 insulin to carb ratio. Recommend supplementation with MVI, 1000 mg vitamin C and 2000 IU Vitamin D as tolerated. Continue Dexcom 6 remote sensor. MONITORING AND EVALUATION: Will continue to monitor blood sugars remotely, provide physicians with updated glycemic data- downloaded into EMR Will continue to encourage and support Time Spent in Nutritional Counseling and Treatment: 10
--- NOTE | 2021-05-08 13:20 | W.PM.PROGNOT ---
Date of Service Date of service: 05/08/21 Time of Service: 13:20 Assessment and Plan Assessment and plan (1) : Status: Acute Assessment and plan: Patient hospitalized day #3 with hyperemesis gravidarum. She also has insulin-dependent diabetes. Her has also been complicated by Covid positivity. From a respiratory standpoint, she is doing fine, she has no shortness of breath or fevers or chills. She continues to have nausea and minimally less vomiting today. Her Accu-Cheks have remained stable in the 120s. She is unscheduled, [id number] antiemetics. She is able to tolerate small sips of liquid today. We will continue this plan with the addition of checking laboratory studies with a CBC and CMP in the morning. She will have every 6 hours Accu-Cheks. My hope is that we can transition to her to a more solid diet in the near future and adjust her sliding scale of insulin as needed. She will continue to monitoring. She remains in isolation due to her Covid positivity. (2) Hyperemesis: Status: Acute (3) Type 1 diabetes mellitus affecting in first trimester, antepartum: Status: Acute (4) COVID-19 affecting in first trimester: Status: Acute Subjective Subjective Patient reports: feels better, nausea, vomiting and afebrile; denies shortness of breath and fever Interval history since last seen: Patient seen and examined this afternoon. She is somewhat improved and her nausea and vomiting, however is still requiring [id number] antiemetics. She was able to tolerate sips of liquid today. She has no fevers or chills. She does continue to dry heave, though she does look better overall. Blood sugars have remained stable in the 120s. She is using her long-acting insulin and no short acting at this point in light of the fact that she has not had very little oral intake. Exam Const General: cooperative, comfortable, no acute distress and anxious Orientation: alert and oriented x3 Eyes General: appearance normal, both eyes and all related structures Resp Effort & Inspection: normal respiratory effort Cardio Rate: regular rate Rhythm: regular rhythm GI Inspection: normal to inspection Objective Last Vital Signs Temp 97.7 F 05/08/21 08:30 Pulse 57 L 05/08/21 08:30 Resp 16 05/08/21 08:30 BP 136/76 05/08/21 08:30 Pulse Ox 100 05/08/21 08:30
[2021-05-08] MEDS: Normal Saline Flush 10 ML SYR IVP ×2 (15:35→17:55)
--- NOTE | 2021-05-08 18:18 | NUR.NOTE ---
Pt asked RN if it was possible to turn off fluids over night. RN spoke with MD Fisher, MD Fisher said it is ok to shut off fluids until morning per verbal orderNursing Note:
[2021-05-08 19:00] VITALS: BP 110/85; PULSE 60; RESP 16; TEMP 36.8; O2SAT 100
[2021-05-09] MEDS: Ondansetron 4 MG/2 ML VIAL 8 MG IVP (01:14)
[2021-05-09] MEDS: Metoclopramide 10 MG/2 ML VIAL IVP (03:37)
[2021-05-09 07:54] LABS: Albumin 2.7 g/dL (3.4-5.0); Alkaline Phosphatase 50 U/L (46-116); BUN 5 mg/dL (7-18); Bilirubin, Total 0.4 mg/dL (0.2-1.0); CREATININE 0.5 mg/dL (0.55-1.02); Calcium 8.4 mg/dL (8.5-10.1); Glucose 74 mg/dL (74-106); Total Protein 5.9 g/dL (6.4-8.2)
[2021-05-09 07:55] LABS: ALT 22 U/L (14-59); AST 9 U/L (15-37); Anion Gap 6.1 mmol/L (3-11); CO2 25.9 mmol/L (21.0-32.0); Chloride 102 mmol/L (98-107); Potassium 3.2 mmol/L (3.5-5.1); Sodium 134 mmol/L (136-145)
[2021-05-09 07:56] LABS: HCT 32.3 % (36.0-46.0); HGB 11.2 g/dL (11.2-15.7); MCH 27.7 pg (27.0-33.0); MCHC 34.7 % (32.0-36.0); Platelet Count 249 10^3/uL (130-400); RBC 4.04 10^6/uL (3.93-5.22); RDW 12.3 % (11.7-14.6); RDW-SD 35.7 fL; WBC 7.74 10^3/uL (4.4-10.8)
[2021-05-09 07:57] LABS: Abs Immature Grans 0.01 10^3/uL (0.0-0.06); Absolute Basophil Count 0.02 10^3/uL (0.0-0.2); Absolute Eosinophil Count 0.02 10^3/uL (0.0-0.7); Absolute Lymphocyte Count 2.97 10^3/uL (1.2-3.4); Absolute Monocyte Count 0.68 10^3/uL (0.1-0.8); Absolute Neutrophil Count 4.03 10^3/uL (1.2-6.7); Basophils % 0.3; Eosinophils % 0.3; Immature Grans % 0.1; Lymphocytes % 38.4; MPV 10.6 fL (8.0-11.0); Monocytes % 8.8; Neutrophils % 52.1
[2021-05-09 08:24] VITALS: BP 128/80; PULSE 66; RESP 16; TEMP 36.6; O2SAT 99
[2021-05-09] MEDS: Normal Saline Flush 10 ML SYR IVP (08:54)
[2021-05-09] MEDS: Pantoprazole 40 MG VIAL IVP (08:54)
[2021-05-09] MEDS: Insulin Aspart 300 UNITS/3 ML PEN SC ×2 (09:02→13:24)
[2021-05-09 12:00] VITALS: BP 130/81; PULSE 66; RESP 14; TEMP 36.7; O2SAT 99
--- NOTE | 2021-05-09 15:28 | PGE_ITS ---
Date of Service Date of service: 05/09/21 Time of Service: 15:28 Assessment and Plan Assessment and plan (1) COVID-19 affecting in first trimester: Status: Acute Assessment and plan: Patient has been 13 days since her positive Covid test with minimal to no symptoms. From that standpoint she is doing well. (2) Hyperemesis: Status: Acute Assessment and plan: Patient's hyperemesis is markedly improved. She has an appropriate routine with antimedics and Protonix for gas irritation. She is taking Protonix, Reglan, Zofran, and Phenergan suppositories. Prescriptions will be made for all of these as appropriate. She has a follow-up visit with scheduled on May 15. (3) Type 1 diabetes mellitus affecting in first trimester, antepartum: Status: Acute Assessment and plan: Patient is having reasonable glycemic control at this point. She has replaced her continuous glucose monitor. She is now and tolerating regular diet. She will return to using her glargine 25 units in the morning and 8 in the evening. She will also have a 1-5 carbohydrate counting and this will be adjusted as needed. Subjective Subjective Patient reports: no new complaints, feels better, tolerating liquids well, tolerating a regular diet, flatus, bowel movement and nausea; denies diarrhea and vomiting Interval history since last seen: Patient was seen and examined this afternoon and is feeling markedly better. She has a mild nausea, no vomiting. She has been tolerating a regular diet and liquids. She has been maintaining normal blood glucose with 25 units of glargine in the morning and afternoon. She is comfortable with carb counting and will resume this. We had a lengthy conversation today regarding appropriate management of her hyperemesis and appropriate medication. Orders will be placed for this. She wishes to be discharged home. She does have a [facility] She knows how to contact us further if she is having questions or concerns. Exam Const General: cooperative, healthy appearing, comfortable, no acute distress, well de veloped and well groomed Eyes General: appearance normal, both eyes and all related structures Resp Effort & Inspection: normal respiratory effort Auscultation: clear to auscultation bilaterally Cardio Rate: regular rate Rhythm: regular rhythm GI Inspection: normal to inspection Palpation: soft Skin General skin exam: no rashes or lesions noted Objective Last Vital Signs Temp 98.1 F 05/09/21 12:00 Pulse 66 05/09/21 12:00 Resp 14 05/09/21 12:00 BP 130/81 05/09/21 12:00 Pulse Ox 99 05/09/21 12:00 Laboratory Results - last 24 hr 05/09/21 05/09/21 07:20 07:20 WBC 7.74 RBC 4.04 Hgb 11.2 D Hct 32.3 L D MCV 80.0 MCH 27.7 MCHC 34.7 RDW 12.3 Plt Count 249 D MPV 10.6 Immature Gran % 0.1 Neutrophils % 52.1 Lymphocytes % 38.4 Monocytes % 8.8 Eosinophils % 0.3 Basophils % 0.3 Absolute Neutrophils 4.03 Absolute Lymphocytes 2.97 Absolute Monocytes 0.68 Absolute Eosinophils 0.02 Absolute Basophils 0.02 Sodium 134 L Potassium 3.2 L Chloride 102 Carbon Dioxide 25.9 Anion Gap 6.1 BUN 5 L Creatinine 0.5 L Estimated GFR/1.73 m2 >= 60.00 Glucose 74 D Calcium 8.4 L Total Bilirubin 0.4 AST 9 L ALT 22 Alkaline Phosphatase 50 Total Protein 5.9 L Albumin 2.7 L
[2021-05-09 15:44] VITALS: BP 137/72; PULSE 67; RESP 16; TEMP 36.7; O2SAT 98
--- NOTE | 2021-05-09 15:48 | W.PM.DS.N ---
Date of service: 05/09/21 Time of Service: 15:51 DS: Diagnosis Discharge Diagnosis (1) COVID-19 affecting in first trimester: Status: Acute (2) Hyperemesis: Status: Acute (3) Type 1 diabetes mellitus affecting in first trimester, antepartum: Status: Acute Discharge Plan Disposition Patient Disposition: HOME Condition: Improving Discharge Details Reason For Visit: Hyperemesis in the 1st Trimester Admit Date/Time: 05/06/21 10:42 Admit Provider: Inés Whitley Attending Provider: Inés Whitley Primary Care Provider: Kalie Espinosa Hospital Course Hospital Course: Patient was admitted to the hospital on 05/06/2021 with severe hyperemesis of . She is approximately 9 weeks gestation. She has a known history of diabetes which is insulin requiring. She also has had a recent Covid positive test. Due to the fact that she is unable to tolerate any oral medication, she was admitted to the hospital for IV hydration antiemetics, and she did receive monoclonal antibodies. Over the course of the next 3 days, she clearly we came across an appropriate regime of medications. Initially she had been n.p.o. and insulin was adjusted to 25 units of glargine in the morning and in the evening. As she was able to tolerate, she did resume her 1:5 carbohydrate counting ratio with short acting insulin. On hospital 3 she was tolerating regular diet and take her short acting insulin. She desires discharge today. Home Meds and New Rx's Prescriptions: New ondansetron HCl [Zofran] 4 mg tablet 8 mg PO Q8H Qty: 60 RF: 3 pantoprazole [Protonix] 40 mg tablet,delayed release (DR/EC) 40 mg PO DAILY Qty: 90 RF: 3 promethazine 25 mg suppository 25 mg FL Q6H PRNQty: 12 RF: 2 Continued meclizine 25 mg tablet 25 mg PO TID PRN (Reason: nausea) Qty: 30 RF: 1 doxylamine-pyridoxine (vit B6) [Diclegis] 10-10 mg tablet,delayed release (DR/EC) 1 tab PO TID PRN (Reason: nausea) Qty: 60 RF: 1 insulin aspart U-100 [Novolog Flexpen U-100 Insulin] 100 unit/mL (3 mL) insulin pen See Rx Instructions subcut TID Qty: 15 RF: 0 metoclopramide HCl [Reglan] 5 mg tablet 5 mg PO QACHS PRN (Reason: nausea and vomiting) Qty: 60 RF: 1 magnesium amino acid chelate 100 MG tablet 100 mg PO DAILY RF: 0 [id number] 1 mg Tablet 1 tab PO DAILY RF: 0 pyridoxine (vitamin B6) 25 mg tablet 75 mg PO DAILY Qty: 15 RF: 0 Changed Toujeo Max U-300 SoloStar 300 unit/mL (3 mL) insulin pen 25 unit subcut BID Qty: 0 RF: 0 Discontinued promethazine 25 mg suppository 25 mg FL Q6H PRN (Reason: nausea and vomiting) Qty: 6 RF: 0 No Action (DME) pen needle, diabetic [BD Ultra-Fine Rhiannon Pen Needle] 32 gauge x 5/32 needle See Rx Instructions .ROUTE .MEDSUPPLY Qty: 50 RF: 5 (DME) Dexcom G6 Transmitter Device See Rx Instructions .ROUTE .MEDSUPPLY Qty: 1 RF: 3 (DME) Dexcom G6 Sensor Device See Rx Instructions .ROUTE .MEDSUPPLY Qty: 3 RF: 8 Discharge Instructions Activity:: Activity as Tolerated Equipment/Supplies:: No Equipment Needed Diet:: Carb Counting Discharge Orders Discharge Orders: Discharge Order (Routine); Ordered 05/09/21 Ordered By: Nelia Fisher DS: Summary Summary Time spent discussing smoking cessation with patient: 3 to 10 minutes Time Spent with Patient providing and/or coordinating discharge services: Greater than 30 minutes Status at Discharge Functional status at discharge: independent ambulation Overall status at discharge: patient is progressing back to baseline Mental Status: mental status grossly normal Speech and Movement: speech and movement normal Mood: congruent mood Affect: normal affect Exam Narrative Exam Narrative: see exam dated 05/09/21 Psych Mental Status: mental status grossly normal Speech and Movement: speech and movement normal Mood: congruent mood Affect: normal affect DS: Data Vitals/I&O Vitals and I&O: Vital Signs Temperature 98.1 F 05/09/21 15:44 Pulse 67 05/09/21 15:44 Pulse Rhythm Regular 05/09/21 11:29 Respiratory Rate 16 05/09/21 15:44 Respiratory Depth Shallow 05/07/21 19:23 Blood Pressure 137/72 05/09/21 15:44 Blood Pressure Mean 93 05/09/21 15:44 Pulse Oximetry 98 05/09/21 15:44 Oxygen Delivery Method Room Air 05/06/21 11:09 Oxygen Flow Rate 0 05/06/21 11:09 Pain Level 0 05/09/21 04:37 Intake & Output 05/08/21 05/09/21 05/09/21 23:59 11:59 23:59 Intake Total 1718.0 / 4919.0 550 / 550 Output Total 900 / 2000 2250 / 2450 200 / 2450 Balance 818.0 / 2919.0 -1700 / -1900 -200 / -1900 Intake: IV 1718.0 / 3819.0 Oral 550 / 550 Output: Urine 850 / 1950 2250 / 2450 200 / 2450 Emesis 50 / 50 Other: Urine Color Light Rosemary Yellow Urine Appearance Clear Urine Odor None Voiding Methods Toilet Data Completed and Pending Labs on day of discharge: Labs from last 24 hours 05/09/21 05/09/21 07:20 07:20 WBC 7.74 RBC 4.04 Hgb 11.2 D Hct 32.3 L D MCV 80.0 MCH 27.7 MCHC 34.7 RDW 12.3 Plt Count 249 D MPV 10.6 Immature Gran % 0.1 Neutrophils % 52.1 Lymphocytes % 38.4 Monocytes % 8.8 Eosinophils % 0.3 Basophils % 0.3 Absolute Neutrophils 4.03 Absolute Lymphocytes 2.97 Absolute Monocytes 0.68 Absolute Eosinophils 0.02 Absolute Basophils 0.02 Sodium 134 L Potassium 3.2 L Chloride 102 Carbon Dioxide 25.9 Anion Gap 6.1 BUN 5 L Creatinine 0.5 L Estimated GFR/1.73 m2 >= 60.00 Glucose 74 D Calcium 8.4 L Total Bilirubin 0.4 AST 9 L ALT 22 Alkaline Phosphatase 50 Total Protein 5.9 L Albumin 2.7 L PFSH Medical History Hx of thyroid nodule Hx of vaginitis (08/21/17) Hyperlipidemia Low vitamin D level (2017). 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
== END 2021-05-09 16:10 | disposition home or self-care (01) ==
PROVIDERS: Obstetrics & Gynecology; Admitting Provider Obstetrics & Gynecology Gynecology; PCP Nurse Practitioner Family; Visit Provider Obstetrics & Gynecology Gynecology
DX: O24.011 Pre-existing type 1 diabetes mellitus, in pregnancy, first trimester (principal); O98.511 Other viral diseases complicating pregnancy, first trimester; O21.1 Hyperemesis gravidarum with metabolic disturbance; U07.1 COVID-19; Z3A.09 9 weeks gestation of pregnancy; E78.5 Hyperlipidemia, unspecified; E10.65 Type 1 diabetes mellitus with hyperglycemia
CPT/HCPCS: 36415; 80051; 80053; 83690; 85027; 96365; 81003; 81015; 82150; 83735; 85025; G0378; J1200; J2405; J2765; J3480

== ENCOUNTER 2021-05-20 02:30 | Outpatient (CLI) | payer OTHER, SELFPAY ==
[2021-05-20 11:31] LABS: Abs Immature Grans 0.03 10^3/uL (0.0-0.06); Absolute Basophil Count 0.04 10^3/uL (0.0-0.2); Absolute Eosinophil Count 0.04 10^3/uL (0.0-0.7); Absolute Lymphocyte Count 2.46 10^3/uL (1.2-3.4); Absolute Monocyte Count 0.52 10^3/uL (0.1-0.8); Basophils % 0.4; Eosinophils % 0.4; HCT 38.6 % (36.0-46.0); HGB 12.7 g/dL (11.2-15.7); Immature Grans % 0.3; Lymphocytes % 22.4; MCH 27.7 pg (27.0-33.0); MCHC 32.9 % (32.0-36.0); MCV 84.1 fL (80-95); MPV 9.9 fL (8.0-11.0); Monocytes % 4.7; Neutrophils % 71.8; Nucleated RBC 0 %; Platelet Count 356 10^3/uL (130-400); RBC 4.59 10^6/uL (3.93-5.22); RDW 12.7 % (11.7-14.6); RDW-SD 38.4 fL; WBC 10.99 10^3/uL (4.4-10.8)
[2021-05-20 11:33] LABS: Absolute Neutrophil Count 7.89 10^3/uL (1.2-6.7)
[2021-05-20 11:52] LABS: Hemoglobin A1C 6.3 % (<5.7)
[2021-05-20 12:37] LABS: TSH (W/Ref FT4) 1.45 uIU/mL (0.36-3.74)
[2021-05-21 10:00] LABS: Hepatitis B Surface Ag Negative (Negative)
[2021-05-21 10:27] LABS: HIV-1/2 Ag & Ab Screen Negative (Negative)
[2021-05-21 10:33] LABS: Hepatitis C Ab w Rflx HCV PCR Negative (Negative)
[2021-05-22 10:11] LABS: Varicella IgG Antibody Positive (See Note)
[2021-05-22 10:17] LABS: Rubella IgG Ab (UVM) Positive (See Note)
[2021-05-22 12:56] LABS: Syphilis Total Ab w/Reflex Nonreactive (Nonreactive)
[2021-05-28 11:41] LABS: Specimen WB Whole Blood
[2021-06-02 12:29] LABS: Result Summary NEGATIVE; Specimen WB Whole Blood
== END 2021-05-20 02:31 | disposition home or self-care (01) ==
LOC: LBO 02:30
PROVIDERS: PCP Nurse Practitioner Family; Visit Provider Advanced Practice Midwife
DX: Z34.91 Encounter for supervision of normal pregnancy, unspecified, first trimester
CPT/HCPCS: 36415; 81329; 86787; 86803; 86850; 86900; 86901; 87340; 87389; 81220; 83036; 84443; 85025; 86762; 86780

== ENCOUNTER 2021-05-27 15:34 | Outpatient (REF) | payer OTHER, SELFPAY ==
[2021-05-27 16:57] LABS: PROTEIN < 6.0 mg/dL
[2021-05-27 17:01] LABS: *AMPHETAMINES SCREEN URINE Negative (Negative); *BARBITURATES SCREEN URINE Negative (Negative); *BENZODIAZEPINES SCREEN URINE Negative (Negative); Cannabinoids THC Positive (Negative); Cocaine Screen,Urine Negative (Negative); METHADONE URINE SCREEN Negative (Negative); OPIATES URINE SCREEN Negative (Negative)
[2021-05-27 17:04] LABS: Tricyclic Antidepressants Negative (Negative)
[2021-05-29 15:09] LABS: Chlamydia Result Negative (Negative)
[2021-05-29 17:40] LABS: GC Result Positive (Negative)
[2021-06-04 11:44] LABS: Buprenorphine Negative ng/mL (Cutoff: 5.0); Norbuprenorphine Negative ng/mL (Cutoff: 2.5)
== END 2021-05-27 15:35 | disposition home or self-care (01) ==
LOC: LBN 15:34
PROVIDERS: Advanced Practice Midwife; PCP Nurse Practitioner Family; Visit Provider Dietitian, Registered
DX: O09.521 Supervision of elderly multigravida, first trimester (principal)
CPT/HCPCS: 80307; 87491; 87591; 82565; 84156; 87086; 87480; 87510; 87660

== ENCOUNTER 2021-05-27 16:32 | Outpatient (REF) | payer OTHER, SELFPAY ==
--- NOTE | 2021-05-27 15:10 | PAPFT_PTH ---
PATIENT: Melvin Bravo LOC: [facility] U#:[id number] AGE/SX: 36/F ROOM: RE05/27/[address]: Chichi Reeves CNM : 1985 BED: DIS: 05/27/2021 SPEC #: [id number] RECD: 05/27/21 18:13 STATUS: SRIDHAR REQ #: [id number] GABBY: 05/27/21 15:[address]: Chichi Reeves DEPT: ON LICENSE OF [facility] Cytology RECD BY: Lily Bernal ENTERED: 05/27/21 18:13 SP TYPE: PAPFT OTHR DR: Kalie Espinosa Tissues: 1 - CX/ENDOCX FOR PAP SMEARS Procedures: PAP THIN PREP/UVM Screening HPV DNA PROBE Comments: [id number]
== END 2021-05-27 16:33 | disposition home or self-care (01) ==
LOC: LBN 16:32
PROVIDERS: PCP Nurse Practitioner Family; Visit Provider Advanced Practice Midwife
DX: Z12.4 Encounter for screening for malignant neoplasm of cervix (principal); Z11.51 Encounter for screening for human papillomavirus (HPV)
CPT/HCPCS: 88142; 87624

== ENCOUNTER 2021-06-30 12:20 | Outpatient (CLI) | payer OTHER, SELFPAY ==
--- NOTE | 2021-06-30 09:00 | NS.NUTBLAN_ITS ---
Met with Cari and RACH in [facility]. She is 14 weeks with DM1. Followed with [facility] [place]. DM meds: 25 u Toujeo Am, 30 u Toujeo PM. Has not been using aspart at meals . Has been using Dexcom 6 continuous glucose monitor- remotely monitored by telegraphic typewriter repairer. Ambulatory Glucose Profile scanned to chart. Needs refill of Dexcom sensors. Last sensor stopped working 06/26/21. Has started to tolerate solids and able to more more and more often. Has noticed her BS going up. Planning on returning to work soon. 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 AGP 06/13/21-06/26/21 Average Glucose: 124 mg/dl (70-170 mg/dl) 97.8% Time in Range (70-180) 2% in high range (>180mg/dl) no hypo or very high blood sugars during time period. 20.5% variability Overall, blood sugars well covered during day, however, fasting sugars often > 95mg/dl. Recommend increase in PM Toujeo. Cari has good working knowledge about carb counting and is managing Dm well. Will follow up prn. MDs to refill Dexcom 6 sensors ( 3 per month).
== END 2021-06-30 12:21 | disposition home or self-care (01) ==
LOC: DS 12:25
PROVIDERS: PCP Nurse Practitioner Family; Visit Provider Dietitian, Registered
DX: O24.012 Pre-existing type 1 diabetes mellitus, in pregnancy, second trimester (principal); Z3A.16 16 weeks gestation of pregnancy; Z71.3 Dietary counseling and surveillance
CPT/HCPCS: 87491; 87591; 97803

== ENCOUNTER 2021-06-30 19:09 | Outpatient (REF) | payer OTHER, SELFPAY ==
[2021-07-01 15:48] LABS: Chlamydia Result Negative (Negative); GC Result Negative (Negative)
--- NOTE | 2021-07-20 12:29 | W.DIABETESNO ---
Date of service: 07/20/21 Time of Service: 12:29 Diabetes Note Reason for Visit: elevated fasting blood sugar levels NOTE: left message to call back regarding fasting blood sugars being elevated this week per GRAVIDI remote monitoring cb. Blood sugars are ranged as follows (07/20-07/14/21): 143, 99, 117, 137, 92, 107, 114 mg/dl. DM meds: 25 u toejeo in am, 30 u toejeo in pm. aspart at meals. If unable to lower AM blood sugars with diet/lifestyle, recommend increasing PM long acting insulin by 3 units. Time Spent in Nutritional Counseling and Treatment: 0
== END 2021-06-30 19:10 | disposition home or self-care (01) ==
LOC: LBN 19:09
PROVIDERS: PCP Nurse Practitioner Family; Visit Provider Obstetrics & Gynecology
DX: O98.212 Gonorrhea complicating pregnancy, second trimester (principal)
CPT/HCPCS: 87491; 87591

== ENCOUNTER 2021-07-24 20:49 | Emergency (ER) | payer OTHER, SELFPAY ==
--- NOTE | 2021-07-24 20:51 | ED.GENADUL_ITS ---
Discharge Plan Disposition Patient Disposition: HOME Condition: Improving Discharge Details Clinical Impression: Nausea and vomiting during Primary Care Provider: Kalie Espinosa ED Provider: Gaurav Camejo Home Meds and New Rx's Prescriptions: Continued (DME) pen needle, diabetic [BD Ultra-Fine Rhiannon Pen Needle] 32 gauge x 5/32 needle See Rx Instructions .ROUTE .MEDSUPPLY Qty: 50 RF: 5 (DME) Dexcom G6 Transmitter Device See Rx Instructions .ROUTE .MEDSUPPLY Qty: 1 RF: 3 Toujeo Max U-300 SoloStar 300 unit/mL (3 mL) insulin pen 25 unit subcut BID RF: 0 insulin aspart U-100 [Novolog Flexpen U-100 Insulin] 100 unit/mL (3 mL) insulin pen See Rx Instructions subcut TID RF: 0 hydrocortisone acetate [Anusol-HC] 25 mg suppository [address] DAILY PRNRF: 0 aspirin 81 mg tablet,delayed release (DR/EC) 81 mg PO DAILY Qty: 60 RF: 3 (DME) Dexcom G6 Sensor Device See Rx Instructions .ROUTE .MEDSUPPLY Qty: 3 RF: 8 metronidazole [Flagyl] 375 mg capsule 375 mg PO BID Qty: 14 RF: 0 azithromycin 1 gram packet 1 g PO DAILY Qty: 1 RF: 0 ceftriaxone 500 mg recon soln 500 mg IM ONCE Qty: 1 RF: 0 metoclopramide HCl [Reglan] 5 mg tablet 5 mg PO QACHS PRN (Reason: nausea and vomiting) Qty: 60 RF: 1 meclizine 25 mg tablet 25 mg PO TID PRN (Reason: nausea) Qty: 30 RF: 1 esomeprazole magnesium [Nexium] 40 mg capsule,delayed release(DR/EC) 40 mg PO DAILY Qty: 60 RF: 2 ondansetron HCl [Zofran] 4 mg tablet 8 mg PO Q8H Qty: 60 RF: 3 [id number] 1 mg Tablet 1 tab PO DAILY RF: 0 Discharge Instructions Instructions: Nausea and Vomiting in (ED) Additional Instructions: Zofran and Phenergan as directed. Plenty of fluids to avoid dehydration. Please watch for new or worsening symptoms and return to the ER for any concerns. I strongly recommend reaching out to your [facility] team Tuesday to discuss your ER visit need for outpatient reevaluation Medical Decision Making 36-year-old female reports approximately 20 weeks, presenting for nausea, vomiting for the past 24 hours, concern for dehydration. She took Zofran at home but forgot she had Phenergan. She noticed some red specks of bl ood in her vomit this evening. Denies black tarry stools. She has been checking her glucose levels regularly, running in the 100s primarily. Contacted her [facility] on-call who recommended coming to the ER for IV hydration, antiemetics and evaluation. Clinically patient has dry mucous membranes, blood pressure of 143/87, heart rate in the 90s, afebrile. She is able to speak in full sentences. She is not actively dry heaving. Denies jessie blood in her vomit, admits to specks and/or streaks of blood in her vomit. Will obtain IV access, give IV fluid, Zofran, obtain routine laboratory values and reassess. CBC reveals a white blood cell count of 12.20, hemoglobin 12.4 hematocrit 37.5 platelet count 391 chemistry sodium 135 potassium 4.0 anion gap of 11.2 creatinine 0.6 with a GFR greater than 60, glucose 174 lipase of 50. Patient unable to provide urine sample at this time. She has no dysuria or hematuria. No abdominal pain or suprapubic discomfort. Patient received 1 L of IV fluid and 4 of Zofran. Patient reports feeling moderate improvement, able to tolerate p.o. intake at this time. Patient states that she feels well enough for discharge. She has Zofran and Phenergan at home. Strict discharge and return precautions were provided This documentation was generated using Good Technologyation system, please disregard any oddities of phrase or misspellings. HPI General Mode of arrival: ambulatory . Date/Time Provider Initiated Documentation: 07/24/21 20:49 . Limitations to Documentation: no limitations . Information obtained by: patient . HPI Narrative: This is a 36-year-old female, past medical history of type 1 diabetes, G 3P1 approximately 20 weeks , presenting to the ER for nausea, vomiting that began almost 24 hours ago, concern for dehydration. Reports that she has been taking her Zofran at home but it is not really helping. She has not taken her Phenergan as she forgot she had it. She states that this evening she noticed a few red streaks in her vomit after heating hard. She denies recent illness or trauma. She denies headache, fever, chest pain, abdominal pain, back pain, dysuria, hematuria, vaginal bleeding or discharge. Patient does state that she had similar symptoms with her previous . The patient contacted the [facility] on-call who sent her to the ER for IV fluid and Zofran Related Data Home Medications Medication Instructions Recorded Confirmed [id number] 1 tab PO DAILY 04/13/21 06/30/21 blood-glucose transmitter #1 ea 04/16/21 06/30/21 pen needle, diabetic 32 gauge x #50 ea 04/16/21 06/30/21 blood-glucose sensor #3 ea 04/23/21 06/30/21 ondansetron HCl [Zofran] 8 mg PO Q8H #60 tab 05/09/21 06/30/21 aspirin 81 mg tablet,delayed 81 mg PO DAILY #60 tab 05/27/21 06/30/21 release hydrocortisone acetate [address] DAILY PRN ea 05/27/21 06/30/21 rectal suppository insulin aspart U-100 100 unit/mL See Rx Instructions SUBCUT TID ml 05/27/21 06/30/21 (3 mL) subcutaneous pen insulin glargine U-300 conc 300 25 unit SUBCUT BID ml 05/27/21 06/30/21 unit/mL (3 mL) subcutaneous pen metronidazole 375 mg capsule 375 mg PO BID #14 cap 05/28/21 06/30/21 azithromycin 1 gram oral packet 1 g PO DAILY #1 ea 05/31/21 06/30/21 ceftriaxone 500 mg solution for 500 mg IM ONCE #1 ea 05/31/21 06/30/21 injection esomeprazole magnesium 40 mg 40 mg PO DAILY #60 cap 06/10/21 06/30/21 capsule,delayed release meclizine 25 mg tablet 25 mg PO TID PRN #30 tab 06/10/21 06/30/21 metoclopramide HCl 5 mg tablet 5 mg PO QACHS PRN #60 tab 06/10/21 06/30/21 Previous Rx's Medication Instructions Recorded blood-glucose transmitter #1 ea 04/16/21 pen needle, diabetic 32 gauge x #50 ea 04/16/21 blood-glucose sensor #3 ea 04/23/21 ondansetron HCl [Zofran] 8 mg PO Q8H #60 tab 05/09/21 aspirin 81 mg tablet,delayed 81 mg PO DAILY #60 tab 05/27/21 release metronidazole 375 mg capsule 375 mg PO BID #14 cap 05/28/21 azithromycin 1 gram oral packet 1 g PO DAILY #1 ea 05/31/21 ceftriaxone 500 mg solution for 500 mg IM ONCE #1 ea 05/31/21 injection esomeprazole magnesium 40 mg 40 mg PO DAILY #60 cap 06/10/21 capsule,delayed release meclizine 25 mg tablet 25 mg PO TID PRN #30 tab 06/10/21 metoclopramide HCl 5 mg tablet 5 mg PO QACHS PRN #60 tab 06/10/21 Allergies Allergy/AdvReac Type Severity Reaction Status Date / Time No Known Allergies Allergy Verified 06/30/21 10:05 General FLOYD: 3 Review of Systems Constitutional Constitutional: Denies fever(s) and Denies headache(s) ENT Ears, Nose, Mouth, and Throat: Denies headache(s) Cardiovascular Cardiovascular: Denies chest pain and Denies dyspnea Respiratory Respiratory: Denies cough and Denies dyspnea Gastrointestinal Gastrointestinal: Denies abdominal pain, Denies constipation, Denies diarrhea, Reports nausea and Reports vomiting Genitourinary Genitourinary: Denies abnormal vaginal bleeding, Denies dysuria and Denies vaginal discharge Musculoskeletal Musculoskeletal: Denies myalgias Integumentary/Breasts Skin/Breast: Denies rash Neurologic Neurologic: Denies headache(s) PFSH All Active Problems (Updated 07/24/21 @ 23:14 by GENIE Mcdaniels) Nausea and vomiting during (Acute) Constipation (Acute) Type 1 diabetes (Acute) Advanced maternal age in multigravida (Acute) BMI 32.0-32.9,adult (Acute) (Acute) Nocturnal leg cramps (Acute 08/21/17) Medical History Acute hemorrhoid COVID-19 affecting in first trimester Gonorrhea affecting History of gestational hypertension History of thyroid nodule Hyperemesis gravidarum before end of 22 week gestation, dehydration Hyperlipidemia Low vitamin D level (2017). 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 Date GA/Weeks # Outcome Route Wgt Sex Labor Lgth Anesthes ia Location Prov Complic 07/19/11 39 No Successful vaginal 3401.943 g Female 2 hour labor [facility] Delivery Date: 07/19/11 Precip L&D, baby bryan side up, nuchal cord x2, only 2 stitches, no bleeding. Elevated BP at end of (Gest HTN). Was not IDDM or GDM. Chichi Block Exam Const General: cooperative, healthy appearing, comfortable and no acute distress Orientation: alert, awake and oriented x3 HENMT Head: normal to inspection, normocephalic and atraumatic Mouth: moist mucous membranes abnormal (Dry) Eyes General: appearance normal, both eyes and all related structures Conjunctivae: conjunctivae normal Neck Neck: normal visual inspection, trachea midline and supple Resp Effort & Inspection: normal respiratory effort and able to speak in complete sentences Auscultation: clear to auscultation bilaterally Cardio Rate: regular rate Rhythm: regular rhythm GI Inspection: normal to inspection Palpation: soft, not firm, no guarding, no pulsatile masses and nontender Auscultation: normal bowel sounds Other: Consistent with approximately 20 weeks gravid Back/Spine/Pelvis Back: No back tenderness Skin General skin exam: no rashes or lesions noted Neuro General: patient alert, patient awake, moves all extremities and no focal motor deficits Cognition: normal cognition Speech: speech normal Gait: normal gait Sensory Exam: no sensory deficits noted Psych Appearance: grossly normal Mental Status: mental status grossly normal
[2021-07-24 20:56] VITALS: BP 143/87; PULSE 99; TEMP 36.5; O2SAT 98
[2021-07-24] MEDS: Ondansetron 4 MG/2 ML VIAL IVP (21:18)
[2021-07-24] MEDS: Normal Saline 1,000 ML 1000 ML IV (21:18)
[2021-07-24 21:27] LABS: Abs Immature Grans 0.05 10^3/uL (0.0-0.06); Basophils % 0.2; HCT 37.5 % (36.0-46.0); HGB 12.4 g/dL (11.2-15.7); Immature Grans % 0.4; Lymphocytes % 11.1; MCH 28.1 pg (27.0-33.0); MCHC 33.1 % (32.0-36.0); MCV 84.8 fL (80-95); MPV 10.1 fL (8.0-11.0); Monocytes % 1.6; Neutrophils % 86.7; Nucleated RBC 0 %; Platelet Count 391 10^3/uL (130-400); RBC 4.42 10^6/uL (3.93-5.22); RDW 12.9 % (11.7-14.6); RDW-SD 39.7 fL
[2021-07-24 21:28] LABS: Absolute Basophil Count 0.02 10^3/uL (0.0-0.2); Absolute Lymphocyte Count 1.35 10^3/uL (1.2-3.4); Absolute Neutrophil Count 10.58 10^3/uL (1.2-6.7)
[2021-07-24 21:51] LABS: ALT 14 U/L (14-59); AST 12 U/L (15-37); Albumin 3.1 g/dL (3.4-5.0); Alkaline Phosphatase 87 U/L (46-116); Anion Gap 11.2 mmol/L (3-11); BUN 6 mg/dL (7-18); Bilirubin, Total 0.4 mg/dL (0.2-1.0); CO2 23.8 mmol/L (21.0-32.0); CREATININE 0.6 mg/dL (0.55-1.02); Calcium 9.4 mg/dL (8.5-10.1); Chloride 100 mmol/L (98-107); Glucose 174 mg/dL (74-106); Lipase 50 U/L (73-393); Sodium 135 mmol/L (136-145); Total Protein 7.9 g/dL (6.4-8.2)
== END 2021-07-24 23:27 | disposition home or self-care (01) ==
PROVIDERS: Emergency Provider Physician Assistant; PCP Nurse Practitioner Family
DX: O21.8 Other vomiting complicating pregnancy (principal)
CPT/HCPCS: 80053; 83690; 96361; 96374; 99284; 85025; 99283; J2405

== ENCOUNTER 2021-09-03 01:18 | Outpatient (CLI) | payer OTHER, SELFPAY ==
--- NOTE | 2021-09-03 08:30 | DI.US_ITS ---
Exam(s) US OB JENNIFER WEIGHT EXAM: US OB JENNIFER WEIGHT CLINICAL HISTORY: growth, jennifer.gestational diabetes,O24.419 TECHNIQUE: Ultrasound performed using standard protocol. COMPARISON: US US THYROID from 09/05/2020 FINDINGS: Ob ultrasound was performed utilizing 3rd trimester protocol. biometry is consistent with gest ational age of 26 weeks 3 days and EDC of December 07. The estimated weight is 934 grams which is at the 44th percentile for predicted gestational age . Placenta is fundal with no evidence of placenta previa. There is a normal quantity of amniotic fluid and the JENNIFER is 15. heart rate is 157 BPM. IMPRESSION: DATA REPOSITORY:
== END 2021-09-03 01:38 ==
PROVIDERS: PCP Nurse Practitioner Family; Visit Provider Obstetrics & Gynecology
DX: O24.012 Pre-existing type 1 diabetes mellitus, in pregnancy, second trimester (principal)
CPT/HCPCS: 76816

== ENCOUNTER 2021-09-18 03:31 | Outpatient (CLI) | payer OTHER, SELFPAY ==
[2021-09-18 15:07] LABS: Abs Immature Grans 0.03 10^3/uL (0.0-0.06); Absolute Basophil Count 0.04 10^3/uL (0.0-0.2); Absolute Eosinophil Count 0.09 10^3/uL (0.0-0.7); Absolute Lymphocyte Count 2.49 10^3/uL (1.2-3.4); Absolute Monocyte Count 0.44 10^3/uL (0.1-0.8); Absolute Neutrophil Count 6.47 10^3/uL (1.2-6.7); Basophils % 0.4; Eosinophils % 0.9; HCT 33.9 % (36.0-46.0); HGB 11.3 g/dL (11.2-15.7); Immature Grans % 0.3; MCH 28.2 pg (27.0-33.0); MCHC 33.3 % (32.0-36.0); MCV 84.5 fL (80-95); MPV 10.2 fL (8.0-11.0); Monocytes % 4.6; Neutrophils % 67.8; Nucleated RBC 0 %; Platelet Count 345 10^3/uL (130-400); RBC 4.01 10^6/uL (3.93-5.22); RDW 12.6 % (11.7-14.6); RDW-SD 38.5 fL; WBC 9.56 10^3/uL (4.4-10.8)
== END 2021-09-18 03:32 | disposition home or self-care (01) ==
LOC: LBO 03:31
PROVIDERS: PCP Nurse Practitioner Family; Visit Provider Obstetrics & Gynecology
DX: O24.012 Pre-existing type 1 diabetes mellitus, in pregnancy, second trimester (principal); O09.522 Supervision of elderly multigravida, second trimester
CPT/HCPCS: 36415; 86850; 86900; 86901; 90384; 85025

== ENCOUNTER 2021-09-18 20:17 | Outpatient (REF) | payer OTHER, SELFPAY | END 2021-09-18 20:18 | disposition home or self-care (01) | LOC: LBN 20:17 | PROVIDERS: PCP Nurse Practitioner Family; Visit Provider Obstetrics & Gynecology | DX: O09.523 Supervision of elderly multigravida, third trimester (principal); O24.913 Unspecified diabetes mellitus in pregnancy, third trimester | CPT/HCPCS: 87086 ==

== ENCOUNTER 2021-09-30 15:38 | Outpatient (REF) | payer OTHER, SELFPAY ==
[2021-09-30 18:04] LABS: *AMPHETAMINES SCREEN URINE Negative (Negative); *BARBITURATES SCREEN URINE Negative (Negative); *BENZODIAZEPINES SCREEN URINE Negative (Negative); Cannabinoids THC Positive (Negative); Cocaine Screen,Urine Negative (Negative); METHADONE URINE SCREEN Negative (Negative); OPIATES URINE SCREEN Negative (Negative)
[2021-09-30 18:10] LABS: Tricyclic Antidepressants Negative (Negative)
[2021-10-07 15:41] LABS: Buprenorphine Negative ng/mL (Cutoff: 5.0)
== END 2021-09-30 15:39 | disposition home or self-care (01) ==
LOC: LBN 15:38
PROVIDERS: PCP Nurse Practitioner Family; Visit Provider Obstetrics & Gynecology
DX: O09.523 Supervision of elderly multigravida, third trimester (principal); Z3A.30 30 weeks gestation of pregnancy
CPT/HCPCS: 80307

== ENCOUNTER 2021-10-09 00:08 | Outpatient (CLI) | payer OTHER, SELFPAY ==
--- NOTE | 2021-10-05 15:13 | DIABASSESS_ITS ---
Date of service: 10/05/21 Time of Service: 15:16 Diabetes Note Reason for Visit: gdm NOTE: Left message for Cari to call display card writer to review blood sugar data from continuous glucose monitor. DM meds: 40 units lantus AM, 45 u lantus PM, carb counting 1:5 for high carb meals, 1:7 low carb meals. Fasting sugars in last week as follows: 107, 142,78,94,88,116,95. Post Prandial blood sugars: 162, 157, 183, 188, 136, 125, 166. Not meeting GDM blood sugar goals at this time. [place] [facility] [place] Recommend adjusting basal and bolus insulin. May benefit from insulin pump. Will meet with Cari at next [facility] visit on 10/09/21 at 3 pm. Time Spent in Nutritional Counseling and Treatment: 0
--- NOTE | 2021-10-09 07:15 | DI.US_ITS ---
Exam(s) US OB JENNIFER WEIGHT EXAM: US OB JENNIFER WEIGHT CLINICAL HISTORY: Growth and JENNIFER,diabetes,advanced maternal age,O09.529. TECHNIQUE: Transabdominal obstetrical ultrasound performed. COMPARISON: US US OB JENNIFER WEIGHT from 09/03/2021 FINDINGS: Transabdominal obstetrical ultrasound performed. FINDINGS: Number of fetuses: One. position: Cephalic. Placental location: There is a grade 2 posterior placenta. No evidence of previa. BIOMETRIC DATA: BPD: 80 mm = 32 weeks 2 days HC: 291 mm = 32 weeks 1 day AC: 272 mm = 31 weeks 2 days FL: 62 mm = 32 weeks 1 day EFW: 1821 grms 47% Composite Age: 32 weeks 0 days EDC: 12/04/2021 Heart Rate: 141BPM Amniotic fluid index: 18.1 cm. Visually, amount of fluid is within normal limits. IMPRESSION: 1. Single live intrauterine gestation as above. 2. Estimated weight is 1821gms. 3. Amniotic fluid index is 18.1 cm. Visually within normal limits. DATA REPOSITORY:
== END 2021-10-09 00:28 ==
PROVIDERS: PCP Nurse Practitioner Family; Visit Provider Obstetrics & Gynecology
DX: O09.523 Supervision of elderly multigravida, third trimester (principal); O24.013 Pre-existing type 1 diabetes mellitus, in pregnancy, third trimester; Z79.4 Long term (current) use of insulin; Z3A.32 32 weeks gestation of pregnancy
CPT/HCPCS: 76816

== ENCOUNTER 2021-10-13 05:20 | Outpatient (CLI) | payer OTHER, SELFPAY ==
[2021-10-13 07:29] VITALS: BP 106/59; PULSE 82; TEMP 36.6
[2021-10-13 07:31] VITALS: BP 106/59; PULSE 82
[2021-10-13 07:50] VITALS: BP 106/59; PULSE 82; TEMP 36.6
--- NOTE | 2021-10-14 10:19 | W.OBNST ---
Date of service: 10/14/21 Time of Service: 10:19 NST Evaluation Reason for NST Reasons for Nonstress Test: GDM-INSULIN Gestational Age Gestational Age in Weeks and Days: 32 Weeks and 0Days Test and Monitor Explained Test/Monitor Explained: Test Explained, Monitor Explained and Patient Verbalized Understanding Vital Signs Blood Pressure: 106/59 Pulse: 82 Temperature: 97.8 F NST Information Date on Monitor: 10/13/21 Time on Monitor: 07:26 Date off Monitor: 10/13/21 Time off Monitor: 07:49 Total Time on Monitor: 23 NST Interventions: PO Hydration Contraction Frequency: 0 NST Evaluation Patient States Movement: Present FHR Baseline: 135 Variability: Moderate 6-25 bpm Accelerations: 15x15 Decelerations: None NST Results: Reactive Note NST Note Note: Reactive NST. I reviewed the patient's glycemic record since her recent insulin increase to 45 units in the morning and 50 units in the night of glargine U-300. Her fastings are less than 100 and she continues to use an aggressive sliding scale of aspart insulin for her preprandial dosing. Patient reports delayed postprandial elevation. She has a history of gastroparesis. Her nausea and vomiting is currently stable. The plan is to continue twice weekly NSTs with careful monitoring of glycemic control. NST Reviewed and Verified by: Inés Whitley
[2021-10-14 10:23] VITALS: BP 106/59; PULSE 82; TEMP 36.6
== END 2021-10-13 08:43 | disposition home or self-care (01) ==
LOC: BCD 05:24 → OBS 07:24
PROVIDERS: PCP Nurse Practitioner Family; Visit Provider Obstetrics & Gynecology Gynecology
DX: O24.414 Gestational diabetes mellitus in pregnancy, insulin controlled (principal); Z3A.32 32 weeks gestation of pregnancy
CPT/HCPCS: 59025

== ENCOUNTER 2021-10-16 06:28 | Outpatient (CLI) | payer OTHER, SELFPAY ==
[2021-10-16 11:09] VITALS: BP 94/52; PULSE 78; TEMP 37
[2021-10-16 11:28] VITALS: BP 94/52; PULSE 78
--- NOTE | 2021-10-16 13:14 | W.OBNST ---
Date of service: 10/16/21 Time of Service: 11:30 NST Evaluation Reason for NST Reasons for Nonstress Test: GDM-INSULIN Gestational Age Gestational Age in Weeks and Days: 32 Weeks and 3Days Test and Monitor Explained Test/Monitor Explained: Test Explained, Monitor Explained and Patient Verbalized Understanding Vital Signs Blood Pressure: 94/52 Pulse: 78 Temperature: 98.6 F NST Information Date on Monitor: 10/16/21 Time on Monitor: 11:09 Date off Monitor: 10/16/21 Time off Monitor: 11:50 Total Time on Monitor: 41 NST Interventions: PO Hydration NST Evaluation Patient States Movement: Present FHR Baseline: 135 Variability: Moderate 6-25 bpm Accelerations: 15x15 Decelerations: None NST Results: Reactive Note NST Note Note: 32wks with T1DM here for NST - reactive. NST Reviewed and Verified by: Taylor John
[2021-10-16 13:15] VITALS: BP 94/52; PULSE 78; TEMP 37
== END 2021-10-16 11:58 | disposition home or self-care (01) ==
LOC: BCD 06:29 → OBS 11:08
PROVIDERS: PCP Nurse Practitioner Family; Visit Provider Obstetrics & Gynecology
DX: O24.013 Pre-existing type 1 diabetes mellitus, in pregnancy, third trimester (principal); Z3A.32 32 weeks gestation of pregnancy
CPT/HCPCS: 59025

== ENCOUNTER 2021-10-20 07:09 | Outpatient (CLI) | payer OTHER, SELFPAY ==
[2021-10-20 07:46] VITALS: BP 112/65; PULSE 68; TEMP 36.7
[2021-10-20 12:05] VITALS: BP 112/65; PULSE 68; TEMP 36.7
--- NOTE | 2021-10-20 12:05 | W.OBNST ---
Date of service: 10/20/21 Time of Service: 12:05 NST Evaluation Reason for NST Reasons for Nonstress Test: CHRONIC MATERNAL DM Gestational Age Gestational Age in Weeks and Days: 33 Weeks and 0Days Test and Monitor Explained Test/Monitor Explained: Test Explained, Monitor Explained and Patient Verbalized Understanding Vital Signs Blood Pressure: 112/65 Pulse: 68 Temperature: 98.1 F NST Information Date on Monitor: 10/20/21 Time on Monitor: 07:44 Date off Monitor: 10/20/21 Time off Monitor: 08:03 Total Time on Monitor: 19 NST Interventions: PO Hydration NST Evaluation Patient States Movement: Present FHR Baseline: 130 Variability: Moderate 6-25 bpm Accelerations: 15x15 Decelerations: None NST Results: Reactive Note NST Note Note: Patient seen on the center for surveillance due to insulin requiring diabetes mellitus. Overall she is doing well. She has a grade 1, reactive nonstress test without uterine activity. She will continue surveillance as scheduled. All questions answered. NST Reviewed and Verified by: Nelia Fisher
== END 2021-10-20 08:17 | disposition home or self-care (01) ==
LOC: BCD 07:10 → OBS 07:57
PROVIDERS: PCP Nurse Practitioner Family; Visit Provider Obstetrics & Gynecology
DX: O24.013 Pre-existing type 1 diabetes mellitus, in pregnancy, third trimester (principal); Z3A.33 33 weeks gestation of pregnancy
CPT/HCPCS: 59025

== ENCOUNTER 2021-10-23 08:49 | Outpatient (CLI) | payer OTHER, SELFPAY ==
[2021-10-23 11:47] VITALS: BP 115/64; PULSE 78; TEMP 37.1
--- NOTE | 2021-10-23 12:01 | W.OBNST ---
Date of service: 10/23/21 Time of Service: 12:01 NST Evaluation Reason for NST Reasons for Nonstress Test: GDM-INSULIN Gestational Age Gestational Age in Weeks and Days: 33 Weeks and 3Days Test and Monitor Explained Test/Monitor Explained: Test Explained, Monitor Explained and Patient Verbalized Understanding Vital Signs Blood Pressure: 115/64 Pulse: 78 Temperature: 98.7 F Urine Results Urine Protein: Negative Urine Ketones: Negative Urine Glucose: Negative Urine Blood: Negative NST Information Date on Monitor: 10/23/21 Time on Monitor: 11:20 Date off Monitor: 10/23/21 Time off Monitor: 11:45 Total Time on Monitor: 25 NST Interventions: None Contraction Frequency: 0 NST Evaluation Patient States Movement: Present FHR Baseline: 135 Variability: Moderate 6-25 bpm Accelerations: 15x15 Decelerations: None NST Results: Reactive Note NST Note Note: Reactive NST, category 1 strip. visit performed today. Follow-up as directed. NST Reviewed and Verified by: Nelia Fisher
[2021-10-23 12:02] VITALS: BP 115/64; PULSE 78; TEMP 37.1
== END 2021-10-23 12:12 | disposition home or self-care (01) ==
LOC: BCD 08:51 → NUR 11:43 → OBS 11:49
PROVIDERS: PCP Nurse Practitioner Family; Visit Provider Obstetrics & Gynecology
DX: O24.013 Pre-existing type 1 diabetes mellitus, in pregnancy, third trimester (principal); Z3A.33 33 weeks gestation of pregnancy
CPT/HCPCS: 59025

== ENCOUNTER 2021-10-27 07:25 | Outpatient (CLI) | payer OTHER, SELFPAY ==
[2021-10-27 07:30] VITALS: BP 99/57; PULSE 69; TEMP 36.7
[2021-10-27 07:55] VITALS: BP 99/57; PULSE 69
--- NOTE | 2021-10-27 10:36 | W.OBNST ---
Date of service: 10/27/21 Time of Service: 10:36 NST Evaluation Reason for NST Reasons for Nonstress Test: GDM-INSULIN Gestational Age Gestational Age in Weeks and Days: 34 Weeks and 0Days Test and Monitor Explained Test/Monitor Explained: Test Explained, Monitor Explained and Patient Verbalized Understanding Vital Signs Blood Pressure: 99/57 Pulse: 69 Temperature: 98.1 F Urine Results Urine Protein: Negative Urine Ketones: Negative Urine Glucose: Negative Urine Blood: Negative NST Information Date on Monitor: 10/27/21 Time on Monitor: 07:30 Date off Monitor: 10/27/21 Time off Monitor: 08:00 Total Time on Monitor: 30 NST Interventions: None NST Evaluation Patient States Movement: Present FHR Baseline: 125 Variability: Moderate 6-25 bpm Accelerations: 15x15 Decelerations: None NST Results: Reactive Note NST Note Note: Patient seen for surveillance this morning along with an office visit. Baby's been moving and active. Her nausea is somewhat improved. She states that her insulin requirements, have somewhat diminished. She has been having morning fastings that are less than 90, and had 1 in the 70s. Her postprandial sugars are running about 130-140. We do lengthy conversation today regarding the appropriateness of frequent kick counts, continued surveillance, and the possibility of placental insufficiency and decreasing insulin requirements. We will partner once weekly visit with a biophysical profile in addition to her surveillance as ordered. NST Reviewed and Verified by: Nelia Fisher
[2021-10-27 10:37] VITALS: BP 99/57; PULSE 69; TEMP 36.7
== END 2021-10-27 08:00 | disposition home or self-care (01) ==
LOC: BCD 07:33 → OBS 07:47
PROVIDERS: PCP Nurse Practitioner Family; Visit Provider Obstetrics & Gynecology
DX: O24.013 Pre-existing type 1 diabetes mellitus, in pregnancy, third trimester (principal); Z3A.34 34 weeks gestation of pregnancy
CPT/HCPCS: 59025

== ENCOUNTER 2021-10-30 09:22 | Outpatient (CLI) | payer OTHER, SELFPAY ==
[2021-10-30 11:53] VITALS: BP 97/58; PULSE 72; TEMP 36.6
--- NOTE | 2021-10-30 12:09 | W.OBNST ---
Date of service: 10/30/21 Time of Service: 12:00 NST Evaluation Reason for NST Reasons for Nonstress Test: GDM-INSULIN Gestational Age Gestational Age in Weeks and Days: 34 Weeks and 3Days Test and Monitor Explained Test/Monitor Explained: Test Explained, Monitor Explained and Patient Verbalized Understanding Vital Signs Blood Pressure: 97/58 Pulse: 72 Temperature: 97.9 F Urine Results Urine Protein: Negative Urine Ketones: Negative Urine Glucose: Negative Urine Blood: Negative NST Information Date on Monitor: 10/30/21 Time on Monitor: 11:18 Date off Monitor: 10/30/21 Time off Monitor: 11:55 Total Time on Monitor: 37 NST Interventions: PO Hydration Contraction Frequency: x4 1-15 min apart NST Evaluation Patient States Movement: Present Variability: Moderate 6-25 bpm Accelerations: 15x15 Decelerations: None NST Results: Reactive Note NST Note Note: 34.3wks with T1DM here for NST. Doing well overall with glucose levels. Fastings all normal. Occ elevated post prandial. NST Reviewed and Verified by: Taylor John
[2021-10-30 12:10] VITALS: BP 97/58; PULSE 72; TEMP 36.6
== END 2021-10-30 13:03 | disposition home or self-care (01) ==
LOC: BCD 09:22 → OBS 10:56
PROVIDERS: PCP Nurse Practitioner Family; Visit Provider Obstetrics & Gynecology
DX: O24.013 Pre-existing type 1 diabetes mellitus, in pregnancy, third trimester (principal); Z3A.34 34 weeks gestation of pregnancy
CPT/HCPCS: 59025

== ENCOUNTER 2021-11-02 07:42 | Outpatient (CLI) | payer OTHER, SELFPAY ==
[2021-11-02 07:46] VITALS: BP 119/59; PULSE 69; TEMP 36.7
[2021-11-02 08:20] VITALS: BP 119/59; PULSE 69
--- NOTE | 2021-11-02 09:17 | PDOC.NST_ITS ---
Date of service: 11/02/21 Time of Service: 09:17 NST Evaluation Reason for NST Reasons for Nonstress Test: GDM-INSULIN Gestational Age Gestational Age in Weeks and Days: 34 Weeks and 6Days Test and Monitor Explained Test/Monitor Explained: Test Explained, Monitor Explained and Patient Verbalized Understanding Vital Signs Blood Pressure: 119/59 Pulse: 69 Temperature: 98.1 F NST Information Date on Monitor: 11/02/21 Time on Monitor: 07:46 Date off Monitor: 11/02/21 Time off Monitor: 08:20 Total Time on Monitor: 34 NST Interventions: PO Hydration NST Evaluation Patient States Movement: Present FHR Baseline: 130 Variability: Moderate 6-25 bpm Accelerations: 15x15 Decelerations: None NST Results: Reactive Note Biophysical Profile (10:10) Results of Biophysical Profile: Bedside ultrasound performed for biophysical profile. Fetus is vertex. Amniotic fluid index is 10. She has 2 points for tone 2 for movement 2 for breathing and 2 for reactive nonstress test NST Note Note: Patient seen while having surveillance. Nonstress test reactive, category 1 strip. Bedside biophysical profile performed which is 10 out of 10. She will continue her kick counts daily. Her Accu-Cheks have been reasonably well controlled with reported fasting sugars in the below 90 range. We discussed again signs and symptoms of decreased movement and placental insufficiency. She will continue close monitoring and surveillance w [facility] twice weekly nonstress testing, weekly biophysical profiles. NST Reviewed and Verified by: Nelia Fisher
[2021-11-02 09:19] VITALS: BP 119/59; PULSE 69; TEMP 36.7
--- NOTE | 2021-11-05 19:16 | W.OBNST ---
Date of service: 11/05/21 Time of Service: 18:16 NST Evaluation Reason for NST Reasons for Nonstress Test: GDM-INSULIN Gestational Age Gestational Age in Weeks and Days: 35 Weeks and 2Days Test and Monitor Explained Test/Monitor Explained: Test Explained, Monitor Explained and Patient Verbalized Understanding Vital Signs Blood Pressure: 119/59 Pulse: 69 Temperature: 98.1 F NST Information Date on Monitor: 11/02/21 Time on Monitor: 07:46 Date off Monitor: 11/02/21 Time off Monitor: 08:20 Total Time on Monitor: 34 NST Interventions: PO Hydration NST Evaluation Patient States Movement: Present FHR Baseline: 130 Variability: Moderate 6-25 bpm Accelerations: 15x15 Decelerations: None NST Results: Reactive Note NST Note Note: Reactive NST. Patient reports satisfactory glycemic control. We will continue twice weekly NSTs. NST Reviewed and Verified by: Inés Whitley
[2021-11-05 19:17] VITALS: BP 119/59; PULSE 69; TEMP 36.7
== END 2021-11-02 08:24 | disposition home or self-care (01) ==
LOC: BCD 07:42 → OBS 07:44
PROVIDERS: PCP Nurse Practitioner Family; Visit Provider Obstetrics & Gynecology Gynecology
DX: O24.414 Gestational diabetes mellitus in pregnancy, insulin controlled (principal); Z3A.34 34 weeks gestation of pregnancy
CPT/HCPCS: 59025

== ENCOUNTER 2021-11-05 07:41 | Outpatient (CLI) | payer OTHER, SELFPAY ==
[2021-11-05 07:49] VITALS: BP 117/70; PULSE 61; TEMP 36.6
[2021-11-05 07:57] VITALS: BP 117/70; PULSE 61
--- NOTE | 2021-11-05 09:01 | W.OBNST ---
Date of service: 11/05/21 Time of Service: 08:01 NST Evaluation Reason for NST Reasons for Nonstress Test: CHRONIC MATERNAL DM Gestational Age Gestational Age in Weeks and Days: 35 Weeks and 2Days Test and Monitor Explained Test/Monitor Explained: Test Explained, Monitor Explained and Patient Verbalized Understanding Vital Signs Blood Pressure: 117/70 Pulse: 61 Temperature: 97.9 F Urine Results Urine Protein: Negative Urine Ketones: Negative Urine Glucose: Negative Urine Blood: Negative NST Information Date on Monitor: 11/05/21 Time on Monitor: 07:44 Date off Monitor: 11/05/21 Time off Monitor: 08:09 Total Time on Monitor: 25 NST Interventions: PO Hydration NST Evaluation Patient States Movement: Present FHR Baseline: 125 Variability: Moderate 6-25 bpm Accelerations: 15x15 Decelerations: None NST Results: Reactive Note Biophysical Profile (Vertex) Results of Biophysical Profile: 10:10 and JENNIFER (10.5) Results of JENNIFER: 10.5 NST Note Note: Reactive NST, Category 1 strip NST Reviewed and Verified by: Nelia Fisher
[2021-11-05 09:04] VITALS: BP 117/70; PULSE 61; TEMP 36.6
== END 2021-11-05 08:45 | disposition home or self-care (01) ==
LOC: BCD 07:42 → OBS 07:47
PROVIDERS: PCP Nurse Practitioner Family; Visit Provider Obstetrics & Gynecology
DX: O24.013 Pre-existing type 1 diabetes mellitus, in pregnancy, third trimester (principal); Z3A.35 35 weeks gestation of pregnancy
CPT/HCPCS: 59025

== ENCOUNTER 2021-11-09 06:52 | Outpatient (CLI) | payer OTHER, SELFPAY ==
[2021-11-09 07:29] VITALS: BP 133/75; PULSE 70; TEMP 36.5
[2021-11-09 08:12] VITALS: BP 133/75; PULSE 70
== END 2021-11-09 08:15 | disposition home or self-care (01) ==
LOC: PRC 06:53 → BCD 06:53 → OBS 07:07
PROVIDERS: PCP Nurse Practitioner Family; Visit Provider Obstetrics & Gynecology Gynecology
DX: O24.414 Gestational diabetes mellitus in pregnancy, insulin controlled (principal); Z3A.32 32 weeks gestation of pregnancy
CPT/HCPCS: 59025

== ENCOUNTER → 2021-11-13 01:05 | Outpatient (CLI) | payer OTHER, SELFPAY ==
--- NOTE | 2021-11-13 09:00 | DI.US_ITS ---
Exam(s) US OB JENNIFER WEIGHT EXAM: US OB JENNIFER WEIGHT CLINICAL HISTORY: GDM, O24.419, wt/jennifer. TECHNIQUE: Transabdominal obstetrical ultrasound performed. COMPARISON: US US OB JENNIFER WEIGHT from 10/09/2021 FINDINGS: Transabdominal obstetrical ultrasound performed. FINDINGS: Number of fetuses: One. position: Cephalic. Placental location: There is a grade 2 posterior and fundal placenta. No evidence of previa. BIOMETRIC DATA: BPD: 88 mm = 35 weeks 3 days HC: 320 mm = 36 weeks AC: 320 mm = 35 weeks 6 days FL: 69 mm = 35 weeks 3 days EFW: 2754 grms 34% Composite Age: 35 weeks 5 days EDC: 12/13/2021 Heart Rate: 153BPM Amniotic fluid index: 11.1 cm. Visually, amount of fluid is within normal limits. IMPRESSION: 1. Single live intrauterine gestation as above. 2. Estimated weight is 2754gms. This is the 34 percentile. 3. Amniotic fluid index is 11.1 cm. Visually within normal limits. DATA REPOSITORY:
--- NOTE | 2021-11-13 15:00 | DI.US_ITS ---
Exam(s) US OB BIOPHYSICAL PROFILE EXAM: US OB BIOPHYSICAL PROFILE CLINICAL HISTORY: BPP O09.529 E10.9 TECHNIQUE: Ultrasound biophysical profile performed using standard protocol. COMPARISON: No exams were available for comparison FINDINGS: ULTRASOUND BIOPHYSICAL PROFILE: Number of fetuses: One. position: Cephalic heart rate: 153 bpm. Placental grade: 2 Placental location: Posterior and fundal. No evidence of previa. Ultrasound gestational age: 35 weeks 5 days Estimated weight: 2754 Grams. This corresponds to 34th percentile. Estimated date of delivery: 12/13/2021 based on ultrasound. Amniotic fluid index: 11.1 cm. Single deepest pocket is 6.1 cm. BIOPHYSICAL PROFILE SCORE: breathin out of 2 movement: 2 out of 2 tone: 2 out of 2 Amniotic fluid: 2 out of 2 Overall biophysical profile score: 8 out of 8. IMPRESSION: Single live intrauterine gestation. Biophysical profile 8 out of 8. DATA REPOSITORY:
== END ==
PROVIDERS: PCP Nurse Practitioner Family; Visit Provider Obstetrics & Gynecology
DX: O09.523 Supervision of elderly multigravida, third trimester (principal); O24.414 Gestational diabetes mellitus in pregnancy, insulin controlled; Z3A.36 36 weeks gestation of pregnancy
CPT/HCPCS: 76815; 76816; 76819

== ENCOUNTER 2021-11-13 08:14 | Outpatient (CLI) | payer OTHER, SELFPAY ==
[2021-11-13 14:38] VITALS: BP 115/71; PULSE 90
[2021-11-13 14:46] VITALS: BP 115/71; PULSE 90; TEMP 36
[2021-11-13 15:11] VITALS: BP 115/71; PULSE 90; TEMP 36
[2021-11-13 15:32] VITALS: BP 115/71; PULSE 90; TEMP 36
--- NOTE | 2021-11-13 15:32 | W.OBNST ---
Date of service: 11/13/21 Time of Service: 14:32 NST Evaluation Reason for NST Reasons for Nonstress Test: GDM-INSULIN Gestational Age Gestational Age in Weeks and Days: 36 Weeks and 3Days Test and Monitor Explained Test/Monitor Explained: Test Explained Vital Signs Blood Pressure: 115/71 Pulse: 90 Temperature: 96.8 F Urine Results Urine Protein: Negative Urine Ketones: Negative Urine Glucose: Negative Urine Blood: Negative NST Information Date on Monitor: 11/13/21 Time on Monitor: 14:28 Date off Monitor: 11/13/21 Time off Monitor: 15:03 Total Time on Monitor: 35 NST Interventions: PO Hydration NST Evaluation Patient States Movement: Present FHR Baseline: 135 Variability: Moderate 6-25 bpm Accelerations: 15x15 Decelerations: None NST Results: Reactive Note NST Note Note: Reactive NST, category 1 strip. visit performed. Going for ultrasound for growth, JENNIFER, and biophysical. All questions answered. Labor induction scheduled at 39 weeks. NST Reviewed and Verified by: Nelia Fisher
== END 2021-11-13 15:05 | disposition home or self-care (01) ==
LOC: BCD 08:59 → OBS 14:27
PROVIDERS: PCP Nurse Practitioner Family; Visit Provider Obstetrics & Gynecology
DX: O24.419 Gestational diabetes mellitus in pregnancy, unspecified control (principal); Z79.4 Long term (current) use of insulin
CPT/HCPCS: 59025

== ENCOUNTER 2021-11-17 07:36 | Outpatient (CLI) | payer OTHER, SELFPAY ==
[2021-11-17 10:58] VITALS: BP 107/56; PULSE 82; TEMP 36.8
[2021-11-17 11:31] VITALS: BP 107/56; PULSE 82; TEMP 36.8
[2021-11-17 12:06] VITALS: BP 107/56; PULSE 82; TEMP 36.8
--- NOTE | 2021-11-17 12:06 | W.OBNST ---
Date of service: 11/17/21 Time of Service: 11:06 NST Evaluation Reason for NST Reasons for Nonstress Test: GDM-INSULIN Gestational Age Gestational Age in Weeks and Days: 37 Weeks and 0Days Test and Monitor Explained Test/Monitor Explained: Test Explained, Monitor Explained and Patient Verbalized Understanding Vital Signs Blood Pressure: 107/56 Pulse: 82 Temperature: 98.2 F Urine Results Urine Protein: Negative Urine Ketones: Negative Urine Glucose: Negative Urine Blood: Negative NST Information Date on Monitor: 11/17/21 Time on Monitor: 11:02 Date off Monitor: 11/17/21 Time off Monitor: Total Time on Monitor: 20 NST Interventions: PO Hydration Contraction Frequency: 0 NST Evaluation Patient States Movement: Present FHR Baseline: 130 Variability: Moderate 6-25 bpm Accelerations: 15x15 Decelerations: None NST Results: Reactive Note NST Note Note: Category 1, reactive nonstress test. Sugars are appropriate. Follow-up for twice-weekly nonstress testing. Culture performed. NST Reviewed and Verified by: Nelia Fisher
== END 2021-11-17 11:44 | disposition home or self-care (01) ==
LOC: BCD 08:12 → OBS 10:39
PROVIDERS: PCP Nurse Practitioner Family; Visit Provider Obstetrics & Gynecology
DX: O24.419 Gestational diabetes mellitus in pregnancy, unspecified control (principal); Z79.4 Long term (current) use of insulin
CPT/HCPCS: 59025; 87081

== ENCOUNTER 2021-11-20 07:24 | Outpatient (CLI) | payer OTHER, SELFPAY ==
[2021-11-20 11:10] VITALS: BP 95/62; PULSE 85; TEMP 36.7
[2021-11-20 17:45] VITALS: BP 95/62; PULSE 85; TEMP 36.7
--- NOTE | 2021-11-20 17:45 | W.OBNST ---
Date of service: 11/20/21 Time of Service: 11:10 NST Evaluation Reason for NST Reasons for Nonstress Test: GDM-INSULIN Gestational Age Gestational Age in Weeks and Days: 37 Weeks and 3Days Test and Monitor Explained Test/Monitor Explained: Test Explained, Monitor Explained and Patient Verbalized Understanding Vital Signs Blood Pressure: 95/62 Pulse: 85 Temperature: 98.1 F NST Information Date on Monitor: 11/20/21 Time on Monitor: 11:05 Date off Monitor: 11/20/21 Time off Monitor: 11:51 Total Time on Monitor: 46 NST Interventions: None NST Evaluation Patient States Movement: Present FHR Baseline: 120 Variability: Moderate 6-25 bpm Accelerations: 15x15 Decelerations: None NST Results: Reactive Note NST Note Note: GDM on insulin. FS ok. NST Reviewed and Verified by: Taylor John
== END 2021-11-20 12:15 | disposition home or self-care (01) ==
LOC: BCD 07:27 → OBS 11:09
PROVIDERS: PCP Nurse Practitioner Family; Visit Provider Obstetrics & Gynecology
DX: O24.419 Gestational diabetes mellitus in pregnancy, unspecified control (principal); Z79.4 Long term (current) use of insulin
CPT/HCPCS: 59025

== ENCOUNTER 2021-11-23 09:50 | Outpatient (CLI) | payer OTHER, SELFPAY ==
[2021-11-23 10:31] VITALS: BP 114/57; PULSE 74
[2021-11-23 10:34] VITALS: BP 114/57; PULSE 74; TEMP 36.8
--- NOTE | 2021-11-23 16:35 | W.OBNST ---
Date of service: 11/23/21 Time of Service: 10:00 NST Evaluation Reason for NST Reasons for Nonstress Test: GDM-INSULIN Reason for NST Other: Type 1 Diabetes Gestational Age Gestational Age in Weeks and Days: 37 Weeks and 6Days Test and Monitor Explained Test/Monitor Explained: Test Explained, Monitor Explained and Patient Verbalized Understanding Vital Signs Blood Pressure: 114/57 Pulse: 74 Temperature: 98.2 F Urine Results Urine Protein: Negative Urine Ketones: Negative Urine Glucose: Negative Urine Blood: Negative NST Information Date on Monitor: 11/23/21 Time on Monitor: 09:56 Date off Monitor: 11/23/21 Time off Monitor: 10:32 Total Time on Monitor: 36 NST Interventions: None Contraction Frequency: Occasional NST Evaluation Patient States Movement: Present FHR Baseline: 135 Variability: Moderate 6-25 bpm Accelerations: 15x15 Decelerations: None NST Results: Reactive Note NST Note Note: GDM. NST reactive. NST Reviewed and Verified by: Taylor John
[2021-11-23 16:36] VITALS: BP 114/57; PULSE 74; TEMP 36.8
== END 2021-11-23 10:35 | disposition home or self-care (01) ==
LOC: BCD 09:52 → OBS 09:53
PROVIDERS: PCP Nurse Practitioner Family; Visit Provider Obstetrics & Gynecology
DX: O24.913 Unspecified diabetes mellitus in pregnancy, third trimester (principal)
CPT/HCPCS: 59025

== ENCOUNTER 2021-11-26 08:14 | Outpatient (CLI) | payer OTHER, SELFPAY ==
[2021-11-26 11:05] VITALS: BP 121/74; PULSE 87; TEMP 36.7
[2021-11-26 11:16] VITALS: BP 121/74; PULSE 87
--- NOTE | 2021-11-26 12:19 | W.OBNST ---
Date of service: 11/26/21 Time of Service: 11:30 NST Evaluation Reason for NST Reasons for Nonstress Test: CHRONIC MATERNAL DM Gestational Age Gestational Age in Weeks and Days: 38 Weeks and 2Days Test and Monitor Explained Test/Monitor Explained: Test Explained, Monitor Explained and Patient Verbalized Understanding Vital Signs Blood Pressure: 121/74 Pulse: 87 Temperature: 98.1 F Urine Results Urine Protein: Positive Urine Ketones: Negative Urine Glucose: Negative Urine Blood: Negative NST Information Date on Monitor: 11/26/21 Time on Monitor: 11:07 Date off Monitor: 11/26/21 Time off Monitor: 11:37 Total Time on Monitor: 30 NST Interventions: PO Hydration NST Evaluation Patient States Movement: Present FHR Baseline: 130 Variability: Moderate 6-25 bpm Accelerations: 15x15 Decelerations: None NST Results: Reactive Note NST Note Note: DM @ 38.2wks. Decreasing insulin needs. Will decrease PM dose to 38U. Cx: 50/-3/soft/midplane. Induction @39wks. Will likely start with pitocin. Will call over the weekend with any concerns. NST Reviewed and Verified by: Taylor John
[2021-11-26 12:20] VITALS: BP 121/74; PULSE 87; TEMP 36.7
== END 2021-11-26 11:52 | disposition home or self-care (01) ==
LOC: BCD 08:23 → OBS 11:02
PROVIDERS: PCP Nurse Practitioner Family; Visit Provider Obstetrics & Gynecology
DX: O24.419 Gestational diabetes mellitus in pregnancy, unspecified control (principal)
CPT/HCPCS: 59025

== ENCOUNTER 2021-12-01 08:05 | Inpatient (IN) | payer OTHER, SELFPAY ==
[2021-12-01] VITALS (18 sets, daily range): BP systolic 104–126; BP diastolic 53–82; PULSE 55–75; RESP 16–20; TEMP 36.4–36.7; O2SAT 99
--- NOTE | 2021-12-01 08:37 | W.PM.OBHPL1 ---
Date of service: 12/01/21 Time of Service: 09:00 Assessment and Plan Assessment and plan (1) : Status: Acute Assessment and plan: Will begin induction of labor with pitocin, likely AROM as she progresses. (2) Type 1 diabetes: Status: Acute Assessment and plan: Will monitor BG throughout labor and treat accordingly. Peds will be aware. OB-HPI Labor/Delivery History of Present Illness Reason for Visit: Induction of Labor Chief Complaint: Scheduled Induction of Labor Indication for Induction: Chronic Maternal Diabetes. NELLIE Calculator Estimated Delivery Date Method Current WG Current Estimate 12/08/21 Ultrasound #1 39w 0d Other Estimates 12/08/21 LMP (Certain) 39w 0d History of Present Expected Delivery Route/Plan - (pt interested in collab w/CNM at labor/) FOB/boyfriend - CHRISTY Chun (first child together, has a 4 yo daughter) Specific Issues/Plan 1. Insulin dependent DM. 04/13/21. Prior to maintenance dose of Glargine 50units. Saw Endocrinology at [facility]. -CBGs: Fasting, 1hr PP. Has transcutaneous continuous glucose monitoring. Will also check some finger sticks. Now on 40/45 with sliding scale for carbs (09/10/2021) -Monthly u/s for growth: Appropriately grown. -NSTs 2x/week beginning 32w. -Opthalmology consult for retinopathy. - Echo WNL. Anatomy [facility] 07/21/21: Normal anatomy, growth and fluid 2. N/V 1st trimester. Ondansetron, Meclazine, 3. Declined Covid vaccine. 05/02/21 + Covid test. 05/06/21 Monoclonal antibody infusion. Continues to decline vaccination even 90 days s/p covid. Wears N95 while at work 4. Declines cfDNA testing. OK with mAFP after 16w- CF neg. Is SMA neg 5. Advanced maternal age Level 2 at [facility]. Growth at 32-WNL. 1821 gm, 47%, JENNIFER 18.1 6. BMI 32 - ASA recommended daily at 12 weeks; 81mg/162mg alternating daily 7. History of gestational hypertension - end of previous - ASA recommended daily 8. Rh Neg; RhoGam @ 28 wks 09/18/2021 9. UDS: THC+ at initial OB. Submersible Pilot pt, repeat @ 28 wks, if remains THC+ will need POSC 10. Gonorrhea positve - treatment with ceftriaxone 500 mg. prescribed for Cari and partner Marquis Chun -12/31/88 Narrative: Here for induction at 39wks Review of Systems Constitutional Constitutional: Reports system reviewed and no additional complaints, except as documented Gastrointestinal Gastrointestinal: Denies vomiting Comments: Reports her usual nausea. Genitourinary Genitourinary: Reports system reviewed and no additional complaints, except as documented Musculoskeletal Comments: No regular contractions PFSH All Active Problems (Updated 12/01/21 @ 09:53 by Taylor John MD) Type 1 diabetes (Acute) Advanced maternal age in multigravida (Acute) BMI 32.0-32.9,adult (Acute) (Acute) Medical History (Updated 12/01/21 @ 09:53 by Taylor John MD) Acute hemorrhoid Constipation COVID-19 affecting in first trimester Gonorrhea affecting History of gestational hypertension History of thyroid nodule Hyperemesis gravidarum before end of 22 week gestation, dehydration Hyperlipidemia Low vitamin D level (2017). 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 Date GA/Weeks # Outcome Route Wgt Sex Labor Lgth Anesthesia Location Prov Complic 07/19/11 39 No Successful vaginal 7 lb 8 oz Female 2 hour labor [facility] Delivery Date: 07/19/11 Last Updated by: Mercedes Reeves Precip L&D, baby bryan side up, nuchal cord x2, only 2 stitches, no bleeding. Elevated BP at end of (Gest HTN). Was not IDDM or GDM. [place] Allergies and Home Medications Allergies Allergy/AdvReac Type Severity Reaction Status Date / Time No Known Allergies Allergy Verified 10/09/21 14:27 Home Medications Medication Instructions Recorded Confirmed Type [id number] 1 mg 1 tab PO DAILY 04/13/21 12/01/21 History tablet blood-glucose transmitter (Dexcom #1 ea 04/16/21 12/01/21 Rx G6 Transmitter device) aspirin 81 mg tablet,delayed 81 mg PO DAILY #60 tabs 05/27/21 12/01/21 Rx release hydrocortisone acetate 25 mg 25 mg AR DAILY PRN 05/27/21 12/01/21 History rectal suppository (Anusol-HC) esomeprazole magnesium 40 mg 40 mg PO DAILY #60 caps 06/10/21 12/01/21 Rx capsule,delayed release (Nexium) metoclopramide HCl 5 mg tablet 5 mg PO QACHS PRN nausea and 06/10/21 12/01/21 Rx (Reglan) vomiting #60 tabs ondansetron HCl 4 mg tablet 8 mg PO Q8H #60 tabs 08/26/21 12/01/21 Rx insulin aspart U-100 100 unit/mL See Rx Instructions subcut TID #15 09/10/21 12/01/21 Rx (3 mL) subcutaneous pen (Novolog mL Flexpen U-100 Insulin aspart) meclizine 25 mg tablet 25 mg PO TID PRN nausea #30 tabs 09/10/21 12/01/21 Rx pen needle, diabetic 32 gauge x #50 ea 09/10/21 12/01/21 Rx 5/32 (BD Ultra-Fine Rhiannon Pen Needle) blood-glucose sensor (Dexcom G6 #3 ea 10/27/21 12/01/21 Rx Sensor device) insulin glargine U-300 conc 300 50 unit (0.1667 mL) subcut BID #6 10/27/21 12/01/21 Rx unit/mL (3 mL) subcutaneous pen mL (Toujeo Max U-300 SoloStar) Exam Physical Exam Vital Signs Reviewed: Yes Detailed Labor and Delivery Exam Dilation: 2 Effacement (%): 70 station: -3 Position: ROP Cervix position: mid Consistency: soft Howard Score: Cervical Points Exam 0 1 2 3 Dilation Closed 1-2cm 3-4 cm 5-6cm Effacement 0-30% 40-50% 60-70% 80% Consistency Firm Medium Soft Station -3 -2 -1,0 +1,+2 Position Posterior Mid Anterior HOWARD Score(Cervical Ripeness Score): 7 Amniotic Membrane Status: Intact Fetus A Heart Rate Baseline: 140 Monitor Accelerations: Present Monitor Decelerations: None Variability: Moderate (6-25 BPM) Presentation: Cephalic Categories: Category I Est. Weight: 8 lb Detailed HEENT Exam Head: Present normocephalic and atraumatic Detailed Abdominal Exam Comments: gravid, nontender Detailed Neurological Exam Neurological: Present alert, oriented X3 and CN II-XII intact DetailedPsychiatric Exam Psychiatric: Present normal affect, normal thought process and cooperative Results Results Group Beta Strep: Negative Risk Assessment Risk for Shoulder Dystocia Historical/Initial OB: POSITIVE FOR: Pre- BMI>30; NEGATIVE FOR: Pelvic Abnormality, Previous Shoulder Dystocia or Previous Macrosomia Counseling: IDDM type 1 this Risk for Pre-Eclampsia Date Initiated/Initials: low dose ASA to begin at 12 weeks. jk Yes, if one or more: POSTIVE FOR: Hx Pre-E/Gest HTN and Pre-gestational DM; NEGATIVE FOR: Chronic HTN, Multiple Gestation, Renal Disease, Systemic Lupus or APA Syndrome Yes, if 2 or more: POSITIVE FOR: Age>= 35 yrs and BMI>30; NEGATIVE FOR: Nulliparity, >10yr btwn pregnancies, ethinicty, Mother/Sister w/ Pre-E or Previous IUGR Risk for Post- Hemorrhage Initial: NEGATIVE FOR: Multiple Gestation, Previous PPH, Known Clotting Deficiency, Grand Multiparity or Anticoagulation Risks Reviewed Risks Reviewed Upon Admission: Yes
[2021-12-01 09:04] LABS: Source Nasal/Nares
[2021-12-01 09:07] LABS: HGB 10.4 g/dL (11.2-15.7); MCH 26.3 pg (27.0-33.0); MCHC 32.5 % (32.0-36.0); MCV 81 fL (80-95); MPV 11.8 fL (8.0-11.0); Platelet Count 242 10^3/uL (130-400); RBC 3.96 10^6/uL (3.93-5.22); RDW 12.8 % (11.7-14.6); RDW-SD 37.2 fL; WBC 6.75 10^3/uL (4.4-10.8)
[2021-12-01] MEDS: Lactated Ringers 1,000 ML 150 ML IV ×3 (10:20→22:13)
[2021-12-01] MEDS: Oxytocin/Normal Saline 30 UNIT/500 ML BAG 2 UNITS IV (10:20)
[2021-12-01 11:41] LABS: COVID-19 PCR Negative (Negative)
[2021-12-01] MEDS: Ondansetron 4 MG/2 ML VIAL (14:48)
[2021-12-01] MEDS: Normal Saline Flush 10 ML SYR (14:48)
--- NOTE | 2021-12-01 15:35 | W.PM.OBNL1 ---
Date of service: 12/01/21 Time of Service: 14:30 Pelvic Exam Dilation: 4 Effacement (%): 70 station: -3 Position: ROP Cervix Position: posterior Consistency: soft Comments: AROM performed with copious clear fluid resulting. Contractions Contraction Frequency(min): q2-3min Fetus A Heart Rate Baseline: 140 Variability: Moderate (6-25 BPM) Categories: Category I Accelerations: Present Decelerations: None Assessment and Plan Assessment and plan (1) Encounter for induction of labor: Status: Acute Assessment and plan: Will continue with pitocin (currently at 10mU). Position changes. Objective Abnormal lab results 12/01/21 Range/Units 08:53 Hgb 10.4 L (11.2-15.7) g/dL Hct 32.0 L (36.0-46.0) % MCH 26.3 L (27.0-33.0) pg MPV 11.8 H (8.0-11.0) fL Temp Pulse Resp BP Pulse Ox 97.6 F 67 20 122/69 99 12/01/21 13:48 12/01/21 13:49 12/01/21 13:48 12/01/21 13:49 12/01/21 08:32 Laboratory Results WBC 6.75 10^3/uL (4.4-10.8) 12/01/21 08:53 RBC 3.96 10^6/uL (3.93-5.22) 12/01/21 08:53 Hgb 10.4 g/dL (11.2-15.7) L 12/01/21 08:53 Hct 32.0 % (36.0-46.0) L 12/01/21 08:53 MCV 81 fL (80-95) 12/01/21 08:53 MCH 26.3 pg (27.0-33.0) L 12/01/21 08:53 MCHC 32.5 % (32.0-36.0) 12/01/21 08:53 RDW 12.8 % (11.7-14.6) 12/01/21 08:53 Plt Count 242 10^3/uL (130-400) 12/01/21 08:53 MPV 11.8 fL (8.0-11.0) H 12/01/21 08:53 COVID-19 Source Nasal/Nares 12/01/21 08:55 SARS-CoV-2 (PCR) Negative (Negative) 12/01/21 08:55 Patient ABO/Rh A Negative 12/01/21 08:53 Antibody Screen NEGATIVE 12/01/21 08:53 Subjective Interval history since last seen: Pt feeling regular uncomfortable ctxs. No LOF/VB. Good FM Results Hemoglobin/Hematocrit: Hgb 10.4 g/dL (11.2-15.7) L 12/01/21 08:53 Hct 32.0 % (36.0-46.0) L 12/01/21 08:53 Abnormal Lab Findings: Abnormal Labs 12/01/21 08:53 Hgb 10.4 L Hct 32.0 L MCH 26.3 L MPV 11.8 H
[2021-12-01] MEDS: Ondansetron 4 MG/2 ML VIAL IVP (16:09)
--- NOTE | 2021-12-01 17:34 | W.PM.OBNL1 ---
Date of service: 12/01/21 Time of Service: 17:35 Pelvic Exam Dilation: 8 Effacement (%): 90 station: 0 Cervix Position: mid Consistency: soft Fetus A Categories: Category I Assessment and Plan Assessment and plan (1) Encounter for induction of labor: Status: Acute Assessment and plan: Await second stage. Objective Abnormal lab results 12/01/21 Range/Units 08:53 Hgb 10.4 L (11.2-15.7) g/dL Hct 32.0 L (36.0-46.0) % MCH 26.3 L (27.0-33.0) pg MPV 11.8 H (8.0-11.0) fL Temp Pulse Resp BP Pulse Ox 97.5 F L 55 L 20 126/82 99 12/01/21 17:15 12/01/21 17:15 12/01/21 17:15 12/01/21 17:15 12/01/21 08:32 Laboratory Results WBC 6.75 10^3/uL (4.4-10.8) 12/01/21 08:53 RBC 3.96 10^6/uL (3.93-5.22) 12/01/21 08:53 Hgb 10.4 g/dL (11.2-15.7) L 12/01/21 08:53 Hct 32.0 % (36.0-46.0) L 12/01/21 08:53 MCV 81 fL (80-95) 12/01/21 08:53 MCH 26.3 pg (27.0-33.0) L 12/01/21 08:53 MCHC 32.5 % (32.0-36.0) 12/01/21 08:53 RDW 12.8 % (11.7-14.6) 12/01/21 08:53 Plt Count 242 10^3/uL (130-400) 12/01/21 08:53 MPV 11.8 fL (8.0-11.0) H 12/01/21 08:53 COVID-19 Source Nasal/Nares 12/01/21 08:55 SARS-CoV-2 (PCR) Negative (Negative) 12/01/21 08:55 Patient ABO/Rh A Negative 12/01/21 08:53 Antibody Screen NEGATIVE 12/01/21 08:53 Subjective Interval history since last seen: Feeling more pressure. Some vomiting. Coping ok with NO. Results Hemoglobin/Hematocrit: Hgb 10.4 g/dL (11.2-15.7) L 12/01/21 08:53 Hct 32.0 % (36.0-46.0) L 12/01/21 08:53 Abnormal Lab Findings: Abnormal Labs 12/01/21 08:53 Hgb 10.4 L Hct 32.0 L MCH 26.3 L MPV 11.8 H
--- NOTE | 2021-12-01 18:22 | W.OBDELIVERY ---
Date of service: 12/01/21 Time of Service: 18:00 OB Labor/ Delivery Information Baby A Delivery Delivery Method: Spontaneaous Presentation: Cephalic Cephalic Position: Vertex Vertex Position: Right Occipital Anterior Cord Description-Baby A: 3 Vessels Amniotic Fluid: Clear Estimated Blood Loss: 200ml Delivery Outcome: Liveborn Providers Doctor: Taylor John Nurse: Luis F Alrled Nurse: Shira Reddy Labor/Delivery Information Number of Babies in Womb: 1 Steroids Given: None Group Beta Strep: Negative Antibiotics Administered: No Rubella Status: Immune Blood Type: A- Varicella Immunity: Immune Shoulder Dystocia: No Stages of Labor Onset of Labor Date: 12/01/21 Complete Dilatation Date: 12/01/21 Complete Dilatation Time: 17:43 ROM Baby A: 12/01/21 ROM Baby A: 14:22 Infant Delivery Date-Baby A: 12/01/21 Delivery Time-Baby A: 17:53 Labor Stage 2 Duration: 10 minutes Placenta Delivery Date-Baby A: 12/01/21 Placenta Delivery Time-Baby A: 17:57 Labor-Stage 3 Duration: 4 minutes Placenta Status: Delivered Baby A Infant Gender: Female Gestational Status: Term (39-41.6 wks) Gestational Age in Weeks/Days: 39 Weeks and 0 Days Score-1 Minute Interval(Baby A) Heart Rate-1 minute: 100 BPM or Greater Respiratory Effort- 1 minute: Spontaneous/Strong Cry Muscle Tone-1 minute: Active Movement Reflex Response-1 minute: Prompt Response Color-1 minute: Pallor or Cyanosis Total Score-1 minute: 8 Score-5 Minute Interval(Baby A) Heart Rate- 5 minute: 100 BPM or Greater Respiratory Effort-5 minute: Spontaneous/Strong Cry Muscle Tone-5 minute: Active Movement Reflex Response-5 minute: Prompt Response Color-5 minute: Bluish Hands or Feet Total Score- 5 minute: 9 Note: The pt was found to be fully dilated. She pushed <10mins to deliver the infant's head in TAMMIE position followed by the shoulders and the rest of the body. The baby was placed on mom's abdomen. After >1min the cord was clamped x2 and cut. The placenta delivered with gentle cord traction and fundal massage and appeared intact. Perineum intact. Fundus was firm with good hemostasis. Cord blood collected. Mom and baby stable at time of note.
[2021-12-01] MEDS: Insulin Aspart 100 UNITS/ML UNIT SC (22:14)
[2021-12-02 00:24] VITALS: BP 120/77; PULSE 63; RESP 18; TEMP 36.6
[2021-12-02 04:28] VITALS: BP 120/71; PULSE 69; RESP 18
[2021-12-02 08:04] VITALS: BP 102/64; PULSE 64; RESP 20; TEMP 36.6; O2SAT 98
--- NOTE | 2021-12-02 08:58 | W.PM.OBPNV1 ---
Date of service: 12/02/21 Time of Service: 08:58 Assessment and Plan Assessment and plan (1) Normal spontaneous vaginal delivery: Status: Acute Assessment and plan: Patient is day #1 status postnormal spontaneous vaginal delivery after labor induction at term due to type 1 diabetes. She is overall doing well. I would anticipate routine care. (2) Type 1 diabetes: Status: Acute Assessment and plan: Patient is currently using a sliding scale. Her insulin requirements will significantly decrease postdelivery. Anticipation would be to restart her at 1/3-1/2 of her normal baseline insulin requirements. We will continue to monitor with Accu-Chek and sliding scale coverage. Anticipate discharge home tomorrow Subjective Subjective Interval history: Patient seen in the center today day #1. She is doing well. She has little to no pain. Her nausea is improved. She is doing fingerstick Accu-Cheks with a sliding scale at this point. Overall, she is feeling well and would like discharge as early as possible, perhaps tomorrow morning if baby is doing well Patient's Mood: Good [place] baby status: Doing well and Nursing well [place] feeding status: Exclusively breast feeding Exam Physical Exam Vital signs: Temp Pulse Resp BP Pulse Ox 97.9 F 64 20 102/64 98 12/02/21 08:04 12/02/21 08:04 12/02/21 08:04 12/02/21 08:04 12/02/21 08:04 Vital Signs Reviewed: Yes Constitutional Constitutional: no acute distress HEENT Exam HEENT Exam: Normal Neck Exam Neck Exam: Normal Respiratory Exam Respiratory Exam: Normal Cardiovascular Exam Cardiovascular Exam: Normal Abdominal Exam Abdomen: Other (Soft, nontender) Fundal Exam Fundus: Below Umbilicus and Firm Extremities Exam Extremity Exam: Normal and Calf Tenderness; negative Edema Neurological Exam Neurological Exam: Normal Psychiatric Exam Psychiatric Exam: Normal Results Hemoglobin/Hematocrit: Hgb 10.4 g/dL (11.2-15.7) L 12/01/21 08:53 Hct 32.0 % (36.0-46.0) L 12/01/21 08:53 Abnormal Lab Findings: Abnormal Labs 12/01/21 08:53 Hgb 10.4 L Hct 32.0 L MCH 26.3 L MPV 11.8 H
[2021-12-02] MEDS: Insulin Aspart 300 UNITS/3 ML PEN SC ×2 (14:56→20:00)
[2021-12-02 16:00] VITALS: BP 102/64; PULSE 74; RESP 16; TEMP 36.9; O2SAT 98
[2021-12-02 20:05] VITALS: BP 120/67; PULSE 74; RESP 18; TEMP 36.6
[2021-12-02] MEDS: Ibuprofen 600 MG TAB PO (21:16)
[2021-12-02] MEDS: Acetaminophen 325 MG TAB 650 MG PO (21:16)
[2021-12-03 01:00] VITALS: BP 107/54; PULSE 54; RESP 18; TEMP 36.6
[2021-12-03] MEDS: Insulin Aspart 300 UNITS/3 ML PEN SC ×2 (01:05→06:25)
[2021-12-03 08:05] VITALS: BP 116/75; PULSE 60; RESP 16; TEMP 36.6; O2SAT 98
--- NOTE | 2021-12-03 08:26 | DSE_ITS ---
DS: Diagnosis Discharge Diagnosis (1) Normal spontaneous vaginal delivery: Status: Acute Asessment and Plan: Routine care. We discussed reasons to call including: heavy increased bleeding or increasing pain, concerns with breast-feeding, concerns for DVT, concerns for depression. (2) Type 1 diabetes: Status: Acute Asessment and Plan: Will cut her Toujeo in half for now and continue her sliding scale. 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 Discharge Plan Disposition Patient Disposition: HOME Condition: Good Discharge Details Reason For Visit: Induction of Labor Admit Date/Time: 12/01/21 08:05 Admit Provider: Taylor John Attending Provider: Taylor John Primary Care Provider: Kalie Espinosa Hospital Course Hospital Course: Pt was admitted for induction of labor at 39wks with pregestational DM. She underwent induction with pitocin and then AROM. She had an uncomplicated vaginal delivery. She had an uncomplicated course. Home Meds and New Rx's Prescriptions: New acetaminophen 325 mg Tablet 650 mg PO Q4H PRN PRNQty: 0 0RF dibucaine 1 % Ointment 1 applic topical TID PRN PRNQty: 0 0RF docusate sodium [Colace] 100 mg Capsule 100 mg PO BID PRN PRNQty: 0 0RF ibuprofen 600 mg Tablet 600 mg PO Q6H PRN PRNQty: 60 0RF Medi-Pads 50 % Pads, Medicated 1 pad NJ PRN PRN (Reason: Discomfort) Qty: 0 0RF Continued (DME) Dexcom G6 Transmitter Device See Rx Instructions .ROUTE .MEDSUPPLY Qty: 1 3RF Rx Instructions: As directed (DME) pen needle, diabetic [BD Ultra-Fine Rhiannon Pen Needle] 32 gauge x 5/32 needle See Rx Instructions .ROUTE .MEDSUPPLY Qty: 50 5RF Rx Instructions: As directed insulin aspart U-100 [Novolog Flexpen U-100 Insulin] 100 unit/mL (3 mL) insulin pen See Rx Instructions subcut TID Qty: 15 4RF Rx Instructions: 1U per 5gram of carbs consumed subcut three times a day; hydrocortisone acetate [Anusol-HC] 25 mg suppository 25 mg NJ DAILY PRN (DME) Dexcom G6 Sensor Device See Rx Instructions .ROUTE .MEDSUPPLY Qty: 3 8RF Rx Instructions: As directed Kulwant Max U-300 SoloStar 300 unit/mL (3 mL) insulin pen 50 unit subcut BID Qty: 6 3RF Rx Instructions: 45 units AM 50 units PM esomeprazole magnesium [Nexium] 40 mg capsule,delayed release(DR/EC) 40 mg PO DAILY Qty: 60 2RF [id number] 1 mg Tablet 1 tab PO DAILY Discontinued meclizine 25 mg tablet 25 mg PO TID PRN (Reason: nausea) Qty: 30 1RF aspirin 81 mg tablet,delayed release (DR/EC) 81 mg PO DAILY Qty: 60 3RF Rx Instructions: take 1 tablet daily, alternating with 2 tablets every other day metoclopramide HCl [Reglan] 5 mg tablet 5 mg PO QACHS PRN (Reason: nausea and vomiting) Qty: 60 1RF ondansetron HCl 4 mg tablet 8 mg PO Q8H Qty: 60 3RF Discharge Instructions Additional Instructions: Nothing in the vagina until 6 week pp visit. Activity:: Activity as Tolerated Equipment/Supplies:: Insulin and needles Diet:: As Tolerated Discharge Orders Discharge Orders: Discharge Order (Routine); Ordered 12/03/21 Ordered By: Taylor John OB:DS Summary Summary Vaginal Delivery Method: Spontaneaous Laceration Description: None Laceration Extension: N/A Contraception Discussed Contraception Discussed: Yes Contraceptive Plan: IUD (Likely Mirena pp), Infant Gender-Baby A: Female weight: 7 lb 13.046 oz Status at Discharge Functional status at discharge: independent ambulation Overall status at discharge: patient is back to baseline Mental Status: mental status grossly normal Speech and Movement: speech and movement normal Mood: congruent mood Affect: normal affect Exam Physical Exam Vital signs: Temp Pulse Resp BP Pulse Ox 98 F 54 L 18 107/54 L 98 12/03/21 01:00 12/03/21 01:00 12/03/21 01:00 12/03/21 01:00 12/02/21 16:00 Vital Signs Reviewed: Yes PFSH All Active Problems (Updated 12/03/21 @ 08:52 by Taylor John MD) Normal spontaneous vaginal delivery (Acute) Type 1 diabetes (Acute) Medical History (Updated 12/03/21 @ 08:52 by Taylor John MD) Acute hemorrhoid BMI 32.0-32.9,adult Constipation History of gestational hypertension History of thyroid nodule Hyperlipidemia Low vitamin D level (2017). 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 Date GA/Weeks # Outcome Route Wgt Sex Labor Lgth Anesthes ia Location Prov [facility] 07/19/11 39 No Successful vaginal 7 lb 8 oz Female 2 hour labor [facility] Delivery Date: 07/19/11 Last Updated by: Mercedes Reeves Precip L&D, baby bryan side up, nuchal cord x2, only 2 stitches, no bleeding. Elevated BP at end of (Gest HTN). Was not IDDM or GDM. Nayely DS: Data Vitals/I&O Vitals and I&O: Vital Signs Temperature 98 F 12/03/21 01:00 Pulse 54 L 12/03/21 01:00 Pulse Rhythm Regular 12/02/21 20:05 Respiratory Rate 18 12/03/21 01:00 Blood Pressure 107/54 L 12/03/21 01:00 Blood Pressure Mean 71 12/03/21 01:00 Pulse Oximetry 98 12/02/21 16:00 Oxygen Delivery Method Room Air 12/01/21 08:32 Oxygen Flow Rate 0 12/01/21 08:32 Pain Level 4 12/02/21 21:16 Intake & Output 12/02/21 12/02/21 12/03/21 11:59 23:59 11:59 Intake Total 1000 / 1438.767 438.767 / 1438.767 Output Total 1999 Balance -1000 / -561.233 438.767 / -561.233 Intake: IV 1000 / 1438.767 438.767 / 1438.767 Output: Urine 1999 Other: Urine Color Light Rosemary Yellow Data Completed and Pending Labs on day of discharge: Labs from last 24 hours 12/03/21 12/01/21 08:17 08:53 Screen Pending Rhogam Unit Number Pending Unit Expiration Date Pending Product Lot # Pending
--- NOTE | 2021-12-03 08:44 | W.PM.OBPNV1 ---
Date of service: 12/03/21 Time of Service: 08:49 Assessment and Plan Assessment and plan (1) Normal spontaneous vaginal delivery: Status: Acute Assessment and plan: Pt recovering as expected s/p NVD. Plans for d/c home today. Plans for LN-IUD . Subjective Subjective Interval history: Pt is doing well post-. Managing her BG with the sliding scale. baby is doing well. Patient's Mood: appropriate baby status: Doing well and Rooming in [place] feeding status: Exclusively breast feeding (some struggles, possible tongue-tie) Exam Physical Exam Vital signs: Temp Pulse Resp BP Pulse Ox 98 F 54 L 18 107/54 L 98 12/03/21 01:00 12/03/21 01:00 12/03/21 01:00 12/03/21 01:00 12/02/21 16:00 Vital Signs Reviewed: Yes Constitutional Constitutional: no acute distress and cooperative Detailed HEENT Exam Head: Present normocephalic and atraumatic Respiratory Exam Respiratory Exam: Normal Abdominal Exam Abdomen: Tender (mildly) Fundal Exam Fundus: Below Umbilicus and Firm Extremities Exam Extremity Exam: negative Calf Tenderness or Edema Detailed Neurological Exam Neurological: Present alert, oriented X3 and CN II-XII intact Results Hemoglobin/Hematocrit: Hgb 10.4 g/dL (11.2-15.7) L 12/01/21 08:53 Hct 32.0 % (36.0-46.0) L 12/01/21 08:53 Abnormal Lab Findings: Abnormal Labs 12/01/21 08:53 Hgb 10.4 L Hct 32.0 L MCH 26.3 L MPV 11.8 H
[2021-12-03] MEDS: Ibuprofen 600 MG TAB PO (08:57)
[2021-12-03] MEDS: Acetaminophen 325 MG TAB 650 MG PO (08:58)
[2021-12-03] MEDS: Docusate Sodium 100 MG CAP PO (09:02)
[2021-12-03] MEDS: Dibucaine 1% 28 GM TUBE TP (14:12)
[2021-12-03] MEDS: Hamamelis Leaf/Glycerin 100 EACH BOX PR (14:12)
== END 2021-12-03 15:00 | disposition home or self-care (01) | DRG 806 ==
PROVIDERS: Admitting Provider Obstetrics & Gynecology; PCP Nurse Practitioner Family; Visit Provider Obstetrics & Gynecology
DX: O24.02 Pre-existing type 1 diabetes mellitus, in childbirth (principal); O36.0930 Maternal care for other rhesus isoimmunization, third trimester, not applicable or unspecified; Z37.0 Single live birth; O99.324 Drug use complicating childbirth; O98.22 Gonorrhea complicating childbirth; A54.9 Gonococcal infection, unspecified; O99.354 Diseases of the nervous system complicating childbirth; E10.319 Type 1 diabetes mellitus with unspecified diabetic retinopathy without macular edema; F12.90 Cannabis use, unspecified, uncomplicated; O99.62 Diseases of the digestive system complicating childbirth; Z3A.39 39 weeks gestation of pregnancy; K59.00 Constipation, unspecified; E78.5 Hyperlipidemia, unspecified; E55.9 Vitamin D deficiency, unspecified; Z87.891 Personal history of nicotine dependence; G47.62 Sleep related leg cramps
CPT/HCPCS: 36415; 85027; 85461; 86850; 86900; 86901; 87635; 90384; J2405; J2790; J3490

== ENCOUNTER 2022-04-29 13:57 | Outpatient (REF) | payer OTHER, SELFPAY ==
[2022-04-29 15:36] LABS: Anion Gap 8.7 mmol/L (3-11); BUN 11 mg/dL (7-18); CO2 25.3 mmol/L (21.0-32.0); CREATININE 0.6 mg/dL (0.55-1.02); Calcium 9.8 mg/dL (8.5-10.1); Calculated LDL 89 mg/dL (<100); Chloride 105 mmol/L (98-107); Cholesterol 169 mg/dL (<200); Estimated GFR 119.23 (mL/min/1.73m2); Glucose 96 mg/dL (74-106); HDL Cholesterol 59 mg/dL (40-60); Magnesium 1.7 mg/dL (1.8-2.4); Potassium 4.1 mmol/L (3.5-5.1); Sodium 139 mmol/L (136-145); TSH (W/Ref FT4) 0.47 uIU/mL (0.36-3.74); Triglyceride 107 mg/dL (<150)
[2022-04-29 15:50] LABS: Vitamin D 25 Total 12.8 ng/mL (30-100)
== END 2022-04-29 13:58 | disposition home or self-care (01) ==
LOC: NCHCN 13:57
PROVIDERS: PCP Nurse Practitioner Family; Visit Provider Nurse Practitioner Family
DX: E87.1 Hypo-osmolality and hyponatremia (principal); R73.09 Other abnormal glucose; E78.5 Hyperlipidemia, unspecified; E04.1 Nontoxic single thyroid nodule; E55.9 Vitamin D deficiency, unspecified; E83.42 Hypomagnesemia; F17.200 Nicotine dependence, unspecified, uncomplicated
CPT/HCPCS: 80048; 80061; 82306; 83735; 84443